=== PATIENT | female | born 1945 | race Caucasian/White ===

== ENCOUNTER 2020-03-18 09:23 | Outpatient (REF) | payer MEDICARE, SELFPAY | END 2020-03-18 09:24 | disposition home or self-care (01) | LOC: HO.LAB 09:23 | PROVIDERS: Visit Provider Internal Medicine | DX: Z20.828 Contact with and (suspected) exposure to other viral communicable diseases (principal) | CPT/HCPCS: C9803; U0003 ==

== ENCOUNTER 2020-03-25 10:18 | Outpatient (REF) | payer MEDICARE, SELFPAY | END 2020-03-25 10:19 | disposition home or self-care (01) | LOC: HO.LAB 10:18 | PROVIDERS: Visit Provider Internal Medicine | DX: Z20.828 Contact with and (suspected) exposure to other viral communicable diseases (principal) | CPT/HCPCS: C9803; U0003 ==

== ENCOUNTER 2021-09-12 12:25 | Outpatient (REF) | payer MEDICARE, SELFPAY ==
--- NOTE | ~2021-09-12 | CT_ITS ---
EXAMINATION: CT HEAD WITHOUT CONTRAST CLINICAL INFORMATION: 76-year-old with headache. COMPARISON: None TECHNIQUE: Contiguous axial imaging was performed from the skull base to vertex without intravenous administration of contrast. This CT examination was performed using dose optimization techniques as appropriate, variously including the following: *Automated exposure control *Adjustment of mA and/or kV according to patient size (this includes techniques or standardized protocols for targeted exams where dose is matched to indication/reason for exam; i.e. extremities or head) *Use of iterative reconstruction technique DLP: 714 mGy-cm FINDINGS: Brain Volume: Moderate generalized diffuse brain parenchymal volume loss noted within the limitations of a qualitative assessment. Structural: Partially empty sella, normal variant. Brain and Meninges: Scattered patchy zones of white matter hypodensity in the subcortical and deeper periventricular white matter of both cerebral hemispheres are noted which are nonspecific but likely reflect chronic ischemic microangiopathy in a patient of this age. Small foci of hypodensity are seen in the deep capsular regions bilaterally likely reflecting chronic ischemic changes and there is a tiny remote lacunar infarct in the posterior right putamen. No acute territorial infarct. No evidence for hemorrhage, extra-axial fluid collection, space-occupying process or mass effect. Bilateral ICA and vertebral artery calcifications. Ventricles and Subarachnoid Spaces: Ventricular system and subarachnoid spaces are consistent with moderate volume loss. No hydrocephalus. Orbital Structures: Bilateral lens extractions noted. Otherwise grossly unremarkable. Osseous Structures, Sinuses/Mastoids, Extracranial Soft Tissues: Osseous structures are intact. Partially imaged retention cyst right maxillary sinus and nasal septal deviation to the left. CT/CT head/brain wo con IMPRESSION: 1. Findings consistent with chronic ischemic microangiopathy in the white matter of both cerebral hemispheres with a small remote lacunar infarct in the right putamen and chronic ischemic microangiopathy in the deep capsular structures bilaterally. 2. No acute intracranial process. No acute infarct, hemorrhage, extra-axial fluid collection, space-occupying process, mass effect or hydrocephalus. 3. Moderate generalized diffuse brain parenchymal volume loss. Bilateral atheromatous calcifications of the ICAs and vertebral arteries.
== END 2021-09-12 12:26 | disposition home or self-care (01) ==
LOC: HO.CT 12:25
PROVIDERS: Visit Provider Internal Medicine Geriatric Medicine
DX: R51.9 Headache, unspecified (principal)
CPT/HCPCS: 70450

== ENCOUNTER 2022-12-14 13:38 | Outpatient (REF) | payer MEDICARE, SELFPAY ==
[2022-12-14 16:26] LABS: Anion Gap 13 (12-20); Blood Urea Nitrogen 25 mg/dL (9-16); Calcium 10.3 mg/dL (8.4-10.2); Carbon Dioxide 21 mmol/L (22-29); Chloride 112 mmol/L (96-108); Estimated Glomerular Filt Rate 43; Glucose Random 239 mg/dL (60-115); Sodium 141 mmol/L (135-145)
== END 2022-12-14 13:39 | disposition home or self-care (01) ==
LOC: HO.HHCL 13:38
PROVIDERS: Visit Provider Internal Medicine Geriatric Medicine
DX: E11.69 Type 2 diabetes mellitus with other specified complication (principal); Z79.4 Long term (current) use of insulin
CPT/HCPCS: 36415; 80048

== ENCOUNTER 2023-01-18 15:51 | Outpatient (REF) | payer MEDICARE, SELFPAY | END 2023-01-18 15:52 | disposition home or self-care (01) | LOC: HO.HHCX 15:51 | PROVIDERS: Visit Provider Internal Medicine Geriatric Medicine | DX: M54.41 Lumbago with sciatica, right side (principal); G89.29 Other chronic pain | CPT/HCPCS: 72100 ==

== ENCOUNTER 2023-02-04 13:22 | Outpatient (AMB) | payer MEDICARE, SELFPAY ==
--- NOTE | 2023-02-04 13:37 | A.OFFVIS_ITS ---
Intake Vital Signs 02/04/23 13:41 Height 5 ft 0.3 in Weight 184 lb 6 oz BMI 35.6 BP 114/60 Blood Pressure Location Lt brachial Position Sitting Respiration 14 Pulse 77 Pulse Source Pulse Oximeter Pulse Oximetry (%) 96 Oxygen Delivery Method Room Air Intake Visit Reasons: Chronic low back pain/CONFIRMED Loom Changer Required: Yes Loom Changer Name: Beverly Allergies BRITTANI Inhibitors Allergy (Verified 02/04/23 13:38) Cough HPI HPI Comments History of Present Illness Details Cecy is a very pleasant 77 year old Icelandic Speaking female who presents to the office, accompanied by her grandson, for evaluation and management of her chronic lower back pain. Patient reports pain right lower and left lower back, worse with movement, sitting, standing and position changes. Pain radiates into thighs bilaterally, she does endorse occassional pain into her feet. She has known diabetic neuropathy, she does not recall EMG testing to her feet. She denies shocking, shooting or electrical type pain down either leg. She does state right side of her back is worse than the left. PCP recently ordered xray and PT. Xray reviewed, results as per below. She had home PT eval and is awaiting to start scheduled visits. Pain today is rated as an 8/10, it becomes worse in the evening in the middle the night where she also reports some cramping in her thighs bilaterally. Patient most recent A1C 8.5 11/2022. PCP ordered recheck but results are not available. Per her grandson patient has been taking her medications as prescribed and working on her diet. States her A1c has been coming down and they are trying very hard to get it under control. In terms of muscle damage condition is described as stabbing, aching, hot, burning, tingling, pins and needles. Pain is negatively impacting patient's enjoyment of life, general activity, mood, normal work, recreational activities and walking. Review of Systems Const All systems reviewed & are unremarkable except as noted in HPI and below Physical Exam Vital Signs: Last Vital Signs Pulse 77 02/04/23 13:41 Resp 14 02/04/23 13:41 BP 114/60 02/04/23 13:41 Pulse Ox 96 02/04/23 13:41 Oxygen Delivery Method Room Air 02/04/23 13:41 BMI result Body Mass Index 35.6 General: awake, alert, oriented. Answers questions appropriately. Fully engaged in examination. Skin: warm, dry, intact HEENT: Normocephalic. Hearing intact. Cardiac: External chest normal in appearance. Respiratory: No cough, audible wheezing or stridor. Abdomen: without gross distension. MS: No obvious swelling or deformities. Neurological: Oriented to person, place, time and situation. Thought process intact. Ambulates with use of a cane. Psychiatric: Appropriate mood and affect. Good judgment and insight. Back/Spine/Pelvis Other: Lumbar exam: Able to transition from sit to stand with assistance Tender to palpation over paraspinal muscles and PSIS ROM: limited secondary to pain with extension to 5 degrees. flexion to 50 degrees Strength: 5/5 BLE Sensation: intact and symmetric BLE DTR: intact and symmetric Straight leg raises with and without dorsiflexion positive bilaterally Facet loading positive bilaterally WILFREDO positive bilaterally SI compression positive bilaterally Thigh thrust positive bilaterally Results Reviewed Results Reviewed: 01/18/23 XR/XR lumbar spine 2-3V FINDINGS: There is bony demineralization. Vertebral body heights are normal. At L4-L5, there is a 5 mm retrolisthesis. At L5-S1, there is mild disc space narrowing and a 6 mm anterolisthesis. No acute fracture or spondylolisthesis is seen. The posterior elements are intact. There is facet arthropathy at L4-L5 and L5-S1. There are diffuse aortoiliac atherosclerotic calcifications. IMPRESSION: At L4-L5 and L5-S1, there is moderate degenerative disc disease an facet arthropathy. Assessment & Plan Assessment & Plan (1) Lumbar spondylosis: Code(s): M47.816 - Spondylosis without myelopathy or radiculopathy, lumbar region (2) Lumbar facet arthropathy: Code(s): M47.816 - Spondylosis without myelopathy or radiculopathy, lumbar region (3) Diabetes 1.5, managed as type 1: Code(s): E13.9 - Other specified diabetes mellitus without complications (4) Chronic pain: Code(s): G89.29 - Other chronic pain (5) Diabetic polyneuropathy: Code(s): E11.42 - Type 2 diabetes mellitus with diabetic polyneuropathy Plan Cecy is a very pleasant 77-year-old female who presented to the office today with her grandson for evaluation management of her chronic lower back pain. History, physical exam and provocative testing consistent with bilateral sacroiliac joint dysfunction, lumbar spondylosis and lumbar radiculopathy. Continue with physical therapy as ordered A1c recheck ordered by PCP at last visit, patient instructed to have this compl eted and send results to our office. EMG ordered for evaluation of bilateral peripheral neuropathy, most likely secondary to uncontrolled diabetes however patient does endorse lumbar radiculopathy with provocative testing. Baclofen 5 mg p.o. daily at bedtime. Patient and Grandson educated on use and precautions. Lidocaine 5% topical patches apply to most painful area. On for 12 hours off for 12 hours. Discussed options for treatment including diagnostic interventional testing, epidural steroid injections, peripheral nerve stimulation with Sprint, RFA and more permanent neuromodulation. Advised patient and her grandson that A1c would need to be below 8 before we could offer her any therapeutic injections, peripheral nerve stimulator or neuromodulation. All questions and concerns have been answered. Patient will follow-up in the office after completion of 4-6 weeks physical therapy. Orders: Orders NE electromyogram (EMG) Today G62.9 - Polyneuropathy, unspecified Medications: New baclofen 5 mg PO BEDTIME 30 tabs 0RF lidocaine 5% leave on most painful area for up to 12 hrs 1 patch topical DAILY 30 ea 0RF Coding Level of Care Code New Pt Level 4 (79606) Diagnoses Lumbar spondylosis M47.816 Lumbar facet arthropathy M47.816 Diabetes 1.5, managed as type 1 E13.9 Chronic pain G89.29 Diabetic polyneuropathy E11.42
[2023-02-04 13:41] VITALS: BP 114/60; PULSE 77; RESP 14; O2SAT 96; BMI 35.6
== END 2023-02-04 14:12 | disposition home or self-care (01) ==
PROVIDERS: PCP Internal Medicine Geriatric Medicine; Visit Provider Registered Nurse Emergency
DX: M47.816 Spondylosis without myelopathy or radiculopathy, lumbar region (principal); G89.29 Other chronic pain; E11.42 Type 2 diabetes mellitus with diabetic polyneuropathy
CPT/HCPCS: 99204

== ENCOUNTER → 2023-02-04 13:22 | Outpatient (BNVA) | payer MEDICARE, SELFPAY | PROVIDERS: PCP Internal Medicine Geriatric Medicine; Visit Provider Registered Nurse Emergency ==

== ENCOUNTER 2023-06-15 11:11 | Outpatient (REF) | payer MEDICARE, SELFPAY ==
[2023-06-15 13:15] LABS: MANUAL DIFF FLAG NO
[2023-06-15 13:35] LABS: Basophils Absolute Auto 0.1 X10*3/uL (0.0-0.2); Basophils Percent Auto 0.6 % (0-2); Eosinophils Absolute Auto 0.2 X10*3/uL (0.0-0.4); Eosinophils Percent Auto 2.7 % (0-4); Imm Gran Abs Auto 0.03 X10*3/uL (0.00-0.03); Imm Gran Pct Auto 0.4 % (0.0-0.4); Lymphocytes Absolute Auto 2.5 X10*3/uL (1.2-4.9); Mean Corpuscular HGB Conc 30.6 g/dl (31.0-35.0); Mean Corpuscular Hemoglobin 26.9 pg (27.0-33.0); Mean Platelet Volume 10.4 fL (9.4-12.3); Monocytes Absolute Auto 0.6 X10*3/uL (0.1-1.2); Neutrophils Absolute Auto 4.6 x10*3/uL (2.0-8.3); Neutrophils Percent Auto 58.3 % (45-73); Platelet Count 284 X10*3/uL (160-400); Red Blood Count 4.09 X10*6/uL (4.20-5.50); Red Cell Distribution Width 14.9 % (11.0-16.0); White Blood Count 7.9 X10*3/uL (4.8-10.8)
[2023-06-15 13:36] LABS: Alanine Aminotransferase 16 U/L (0-31); Alkaline Phosphatase 65 U/L (39-117); Anion Gap 10 (12-20); Aspartate Amino Transferase 16 U/L (5-31); Bilirubin Total 0.2 mg/dL (0.0-1.0); Blood Urea Nitrogen 22 mg/dL (9-16); Calcium 10.1 mg/dL (8.4-10.2); Carbon Dioxide 25 mmol/L (22-29); Chloride 111 mmol/L (96-108); Cholesterol 148 mg/dL (<200); Estimated Glomerular Filt Rate 59; Glucose Random 248 mg/dL (60-115); HDL Cholesterol 48 mg/dL (>40); LDL Cholesterol Calculated 54 mg/dL (<100); Potassium 4.9 mmol/L (3.3-5.1); Sodium 141 mmol/L (135-145); Total Protein 7.1 g/dL (6.5-8.0); Triglycerides 231 mg/dL (<150)
[2023-06-15 14:27] LABS: Creatinine Urine 147.88 mg/dL; Microalbum/Creatinine Ratio Ur 179.1 ug/mg cr (<30)
== END 2023-06-15 11:12 | disposition home or self-care (01) ==
LOC: HO.HHCL 11:11
PROVIDERS: Visit Provider Internal Medicine Geriatric Medicine
DX: E11.69 Type 2 diabetes mellitus with other specified complication (principal); I49.9 Cardiac arrhythmia, unspecified; I73.9 Peripheral vascular disease, unspecified; Z79.4 Long term (current) use of insulin
CPT/HCPCS: 36415; 80053; 80061; 82043; 82570; 85025

== ENCOUNTER 2023-12-03 11:45 | Outpatient (REF) | payer MEDICARE, SELFPAY ==
[2023-12-03 13:26] LABS: MANUAL DIFF FLAG NO
[2023-12-03 13:40] LABS: Basophils Percent Auto 0.6 % (0-2); Eosinophils Absolute Auto 0.2 X10*3/uL (0.0-0.4); Hematocrit 33.4 % (37.0-47.0); Hemoglobin 10.6 g/dl (12.0-16.0); Imm Gran Abs Auto 0.02 X10*3/uL (0.00-0.03); Imm Gran Pct Auto 0.3 % (0.0-0.4); Lymphocytes Absolute Auto 1.9 X10*3/uL (1.2-4.9); Lymphocytes Percent Auto 27.5 % (20-40); Mean Corpuscular HGB Conc 31.7 g/dl (31.0-35.0); Mean Corpuscular Hemoglobin 26.8 pg (27.0-33.0); Mean Corpuscular Volume 84.3 fL (80.0-98.0); Mean Platelet Volume 10.7 fL (9.4-12.3); Monocytes Absolute Auto 0.5 X10*3/uL (0.1-1.2); Monocytes Percent Auto 6.7 % (2-11); Neutrophils Absolute Auto 4.3 x10*3/uL (2.0-8.3); Neutrophils Percent Auto 61.9 % (45-73); Platelet Count 261 X10*3/uL (160-400); Red Blood Count 3.96 X10*6/uL (4.20-5.50); Red Cell Distribution Width 14.9 % (11.0-16.0)
[2023-12-03 13:55] LABS: Partial Thromboplastin Time 32.3 SEC (26.0-36.8)
[2023-12-03 13:59] LABS: Anion Gap 14 (12-20); Blood Urea Nitrogen 28 mg/dL (9-16); Calcium 9.6 mg/dL (8.4-10.2); Carbon Dioxide 25 mmol/L (22-29); Chloride 109 mmol/L (96-108); Cholesterol 141 mg/dL (<200); Estimated Glomerular Filt Rate 49; Glucose Random 197 mg/dL (60-115); HDL Cholesterol 42 mg/dL (>40); LDL Cholesterol Calculated 65 mg/dL (<100); Potassium 4.4 mmol/L (3.3-5.1); Sodium 144 mmol/L (135-145); Triglycerides 174 mg/dL (<150)
[2023-12-03 14:02] LABS: B Type Natriuretic Peptide 59 pg/mL (<100)
== END 2023-12-03 11:46 | disposition home or self-care (01) ==
LOC: HO.HHCL 11:45
PROVIDERS: Visit Provider Internal Medicine Cardiovascular Disease
DX: Z13.89 Encounter for screening for other disorder (principal)
CPT/HCPCS: 36415; 80048; 80061; 83880; 85025; 85730

== ENCOUNTER 2023-12-24 15:04 | Outpatient (REF) | payer MEDICARE, SELFPAY ==
--- NOTE | ~2023-12-24 | XR_ITS ---
EXAMINATION: XR ANKLE, RIGHT CLINICAL INFORMATION: 78 y.o F acute ankle pain, swelling, after tripping COMPARISON: None available. TECHNIQUE: AP, lateral, and mortise views of the right ankle. FINDINGS: Soft tissue swelling at the right ankle. No fracture or malalignment. Ankle joint effusion. Minimal osteoarthritis in the Chopart joint. No focal osteolysis is identified. Small enthesopathic spurs are present at the Achilles tendon insertion and plantar fascial origin on the calcaneus. Atherosclerotic calcification. XR/XR ankle RT min 3V IMPRESSION: Soft tissue swelling at the right ankle with an ankle joint effusion. No acute fracture or malalignment. Electronically signed by: John Suggs MD 12/30/2023 05:07 PM EDT
== END 2023-12-24 15:05 | disposition home or self-care (01) ==
LOC: HO.HHCX 15:04
PROVIDERS: Visit Provider Registered Nurse
DX: S99.911A Unspecified injury of right ankle, initial encounter (principal)
CPT/HCPCS: 73610

== ENCOUNTER 2024-07-18 10:49 | Outpatient (REF) | payer MEDICARE, SELFPAY ==
[2024-07-18 11:22] LABS: MANUAL DIFF FLAG NO
[2024-07-18 11:34] LABS: Basophils Percent Auto 0.4 % (0-2); Eosinophils Absolute Auto 0.3 X10*3/uL (0.0-0.4); Eosinophils Percent Auto 3.3 % (0-4); Hematocrit 35.7 % (37.0-47.0); Hemoglobin 10.9 g/dl (12.0-16.0); Imm Gran Abs Auto 0.02 X10*3/uL (0.00-0.03); Imm Gran Pct Auto 0.3 % (0.0-0.4); Lymphocytes Absolute Auto 2.1 X10*3/uL (1.2-4.9); Lymphocytes Percent Auto 27.2 % (20-40); Mean Corpuscular HGB Conc 30.5 g/dl (31.0-35.0); Mean Corpuscular Hemoglobin 26.2 pg (27.0-33.0); Mean Corpuscular Volume 85.8 fL (80.0-98.0); Mean Platelet Volume 10.5 fL (9.4-12.3); Monocytes Absolute Auto 0.5 X10*3/uL (0.1-1.2); Monocytes Percent Auto 7.1 % (2-11); Neutrophils Absolute Auto 4.7 x10*3/uL (2.0-8.3); Neutrophils Percent Auto 61.7 % (45-73); Platelet Count 248 X10*3/uL (160-400); Red Blood Count 4.16 X10*6/uL (4.20-5.50); Red Cell Distribution Width 15.4 % (11.0-16.0); White Blood Count 7.6 X10*3/uL (4.8-10.8)
[2024-07-18 12:16] LABS: Alanine Aminotransferase 14 U/L (0-31); Alkaline Phosphatase 62 U/L (39-117); Anion Gap 12 (12-20); Aspartate Amino Transferase 17 U/L (5-31); Bilirubin Total 0.3 mg/dL (0.0-1.0); Blood Urea Nitrogen 18 mg/dL (9-16); Carbon Dioxide 27 mmol/L (22-29); Chloride 110 mmol/L (96-108); Cholesterol 145 mg/dL (<200); Estimated Glomerular Filt Rate > 60; Glucose Random 176 mg/dL (60-115); HDL Cholesterol 49 mg/dL (>40); LDL Cholesterol Calculated 59 mg/dL (<100); Potassium 4.6 mmol/L (3.3-5.1); Sodium 144 mmol/L (135-145); Total Protein 6.8 g/dL (6.5-8.0); Triglycerides 188 mg/dL (<150)
[2024-07-18 12:27] LABS: Vitamin B12 263 pg/mL (200-900)
--- OUTSIDE RECORDS SUMMARY | 2024-07-18 12:58 | XMS_ITS | Encounter Summary ---
Author Organization [facility] Address [address] [place] [address] Care Team Providers Care Tablet Coater Name Role Phone Name, Everett PERALTA Primary Care Provider [phone] Aidan Curiel MD Unavailable Encounter Details Date Type Department Care Team (Late st Contact Info) Description 05/04/2018 Scanned Document [facility] [place] [address] [address] Aidan Curiel MD [address] [address] Social History Tobacco Use Types Packs/Day Years Used Date Smoking Tobacco: Never Assessed Sex and Gender Information Value Date Recorded Sex Assigned at Not on file Gender Identity Not on file Sexual Orientation Not on file documented as of this encounter Plan of Treatment Not on file documented as of this encounter Visit Diagnoses Not on filedocumented in this encounter Care Teams Tablet Coater Relationship Specialty Start Date End Date Name, MD Everett [address] [place] [id number] PCP - General Internal Medicine 02/04/18 Aidan Curiel MD [address] [place] [id number] Cardiovascular Disease 02/04/18 documented as of this encounter
--- OUTSIDE RECORDS SUMMARY | 2024-07-18 12:58 | XMS_ITS | Encounter Summary ---
Author Organization [facility] Address [address] [place] [address] [address] [place] [address] Care Team Providers Care Channel Marketing Program Manager Name Role Phone Name, Everett PERALTA Primary Care Provider [phone] Mary Ochoa PharmD Unavailable Reason for Visit * Reason Comments Med Refill Encounter Details Date Type Department Care Team (Late st Contact Info) Description 11/09/2022 Refill [facility] MEDICINE [address] [place] [address] PuiaDipeshMary, PharmD [address] [place] [address] Type 2 diabetes mellitus with other specified complication, with long-term current use of insulin ([facility]) Social History Tobacco Use Types Packs/Day Years Used Date Smoking Tobacco: Never Assessed Comments Unknown Sex and Gender Information Value Date Recorded Sex Assigned at Female 02/16/2022 10:15 AM EDT Legal Sex Female 10:15 AM EDT Gender Identity Female 02/16/2022 10:15 AM EDT Sexual Orientation Straight 02/16/2022 10 :15 AM EDT documented as of this encounter Plan of Treatment Upcoming Encounters Date Type Department Care Team (Late st Contact Info) Description 09/05/2024 11:30 AM EDT Medication Management [facility] MEDICINE [address] [place] [address] Puia, Mary, PharmD [address] [place] [address] documented as of this encounter Goals Goal Patient Goal Type Associated Problems Recent Progress Patient-Stated? Author Hemoglobin A1c < 8 Result Component 8(07/06/2024 11:26 AM EDT) No Mary Ochoa PharmD Record your blood sugar as directed Result Component No Mary Ochoa PharmD Note: Use CGM, ensuring sensor is scanned at least once every 8 hours to capture 24H data. Check BG manually, as directed. documented as of this encounter Visit Diagnoses Diagnosis Type 2 diabetes mellitus with other specified complication, with long-term current use of insulin ([facility]) documented in this encounter Care Teams Channel Marketing Program Manager Relationship Specialty Start Date End Date Name, MD Everett [address] [place] [address] PCP - General Family Medicine 05/28/15 Mary Ochoa PharmD [address] [place] [address] Pharmacist Internal Medicine 12/09/21 documented as of this encounter
--- OUTSIDE RECORDS SUMMARY | 2024-07-18 12:58 | XMS_ITS | Encounter Summary ---
Author Organization [facility] Address [address] [place] [address] [address] [place] [address] Care Team Providers Care Flash Drier Operator Name Role Phone Name, Everett PERALTA Primary Care Provider Mary Ochoa PharmD Unavailable Encounter Details Date Type Department Care Team (Late Contact Info) Description 09/29/2022 Abstract [facility] MEDICINE [address] [place] [phone] Name, MD Everett [address] [place] [id number] Social History Tobacco Use Types Packs/Day Years Used Date Smoking Tobacco: Never Assessed Comments Unknown Sex and Gender Information Value Date Recorded Sex Assigned at Female 02/16/2022 10:15 AM EDT Legal Sex Female 10:15 AM EDT Gender Identity Female 02/16/2022 10:15 AM EDT Sexual Orientation Straight 02/16/2022 10 :15 AM EDT COVID-19 Exposure Response Date Recorded In the last 10 days, have yo u been in contact with someone who was confirmed or suspected to have Coronavirus/COVID-19? No / Unsure 09/28/2022 1:50 PM EDT documented as of this encounter Plan of Treatment Upcoming Encounters Date Type Department Care Team (Late st Contact Info) Description 09/05/2024 11:30 AM EDT Medication Management [facility] MEDICINE [address] [place] [phone] KimiaHildasa, PharmD [address] [place] [address] documented as of this encounter Goals Goal Patient Goal Type Associated Problems Recent Progress Patient-Stated? Author Hemoglobin A1c < 8 Result Component 8(07/06/2024 11:26 AM EDT) No Mary Ochoa, Manuel documented as of this encounter Procedures Procedure Name Priority Date/Time Associated Diagnosis Comments COLONOSCOPY Routine 05/01/2014 1:21 PM EST documented in this encounter Results * Colonoscopy (05/01/2014 1:21 PM EST) Colonoscopy Normal Normal Narrative Coty Torres - 05/01/2014 1:21 PM EST Recommended 5 year follow up us Historical Provider HEALTH MAINTENANCE Final Result documented in this encounter Visit Diagnoses Not on filedocumented in this encounter Care Teams Flash Drier Operator Relationship Specialty Start Date End Date Name, MD Everett [address] [place] [address] PCP - General Family Medicine 05/28/15 Mary Ochoa, PharmD [address] [place] [address] Pharmacist Internal Medicine 12/09/21 documented as of this encounter
--- OUTSIDE RECORDS SUMMARY | 2024-07-18 12:58 | XMS_ITS | Clinical Summary ---
Author Organization [employer] Address [address] [place] [address] [address] [place] [address] Care Team Providers Care Equipment Maint Tech Name Role Phone Name, Everett PERALTA Primary Care Provider [phone] PuMary marcial PharmD Unavailable [phone] Allergies Active Allergy Reactions Criticality Noted Date Comments Rubén Inhibitors Cough Medications albuterol 108 (90 Base) MCG/ACT inhaler Inhale 2 puffs every 4 (four) hours if needed. 020 Active cilostazol (Pletal) 50 MG tablet TAKE 1 TABLET BY MOUTH TWICE DAILY IN THE MORNING AND IN THE EVENING (30 MINUTES BEFORE OR 2 HOURS AFTER FOOD) 022 Active clopidogrel (Plavix) 75 MG tablet Take 75 mg by mouth in the morning. 023 Active amLODIPine (Norvasc) 10 MG tablet TAKE 1 TABLET BY MOUTH AT BEDTIME 90 tablet 3 024 Active losartan (Cozaar) 100 MG tablet Take 100 mg by mouth in the morning. 024 Active Acetaminophen Extra Strength 500 MG tablet TAKE 1 TABLET BY MOUTH EVERY 8 HOURS NEEDED FOR MILD PAIN 90 tablet 024 Active insulin pen needle (UltiGOriginalrd SafePack Pen Needle) 32G x 4 mm miscIndication s:Type 2 diabetes mellitus with other specified complication, with long-term current use of insulin ([facility]) Use 1 daily to inject insulin 100 each 3 024 Active tiotropium (Spiriva HandiHaler) 18 MCG inhalation capsule USE 1 CAPSULE FOR INHALATION ONCE A DAY. DO NOT SWALLOW CAPSULE. 30 capsule 5 024 Active fluticasone furoate (Arnuity Ellipta) 50 MCG/ACT inhaler INHALE 1 PUFF BY MOUTH IN THE MORNING RINSE MOUTH AFTER USING. 30 each 5 024 Active insulin glargine (Toujeo SoloStar) 300 UNIT/ML injectionIndic ations:Type 2 diabetes mellitus with other specified complication, with long-term current use of insulin (CMS/HCC) Inject 50 units subQ once daily at bedtime. If hypoBG recurs decrease further to 46 units & call office. 9 mL 5 024 Active cyanocobalamin (Vitamin B-12) 1000 MCG/ML injection INJECT 1 ML INTRAMUSCULARLY ONCE PER MONTH 1 mL 024 Active D3 Super Strength 50 MCG (1999 UT) capsuleIndicat ions:Vitamin D deficiency TAKE 1 CAPSULE BY MOUTH TWICE DAILY IN THE MORNING AND IN THE EVENING 180 capsule 1 024 Active albuterol (2.5 MG/3ML) 0.083% nebulizer solutionIndica tions:Asthma with status asthmaticus, unspecified asthma severity, unspecified whether persistent INHALE 1 AMPULE USING A NEBULIZER EVERY 4 HOURS 90 mL 024 Active Continuous Glucose Movie Shot Cameraman (FreeStyle Fabrice 3 [place]) deviceIndicati ons:Type 2 diabetes mellitus with other specified complication, with long-term current use of insulin (CMS/HCC) 1 each 3 times daily. Use daily as directed for CGM 1 each 025 Active Continuous Glucose Sensor (FreeStyle Fabrice 3 Plus Sensor) miscIndication s:Type 2 diabetes mellitus with other specified complication, with long-term current use of insulin (CMS/HCC) 1 each Once per day. Apply 1 sensor every 15 days, as directed, for CGM. 2 each 025 Active Lancets (OneTouch Delica Plus [id number]) miscIndication s:Type 2 diabetes mellitus with other specified complication, with long-term current use of insulin (CMS/HCC) Use to test blood sugar up to three times daily as directed 100 each 025 Active glucose blood (FreeStyle Precision Arian Test) test stripIndicatio ns:Type 2 diabetes mellitus with other specified complication, with long-term current use of insulin (CMS/HCC) Use to test blood sugar up to 3 times daily, as directed 100 each Active Aspirin Low Dose 81 MG EC tabletIndicati ons:Peripheral vascular disease (CMS/HCC) TAKE 1 TABLET BY MOUTH AT BEDTIME 30 tablet Active buPROPion SR (Wellbutrin SR) 150 MG 12 hr tabletIndicati ons:Depression , unspecified depression type TAKE 1 TABLET BY MOUTH TWICE DAILY IN THE MORNING AND IN THE EVENING 180 tablet Active metFORMIN XR (Glucophage-XR ) 500 MG 24 hr tabletIndicati ons:Type 2 diabetes mellitus with other specified complication, with long-term current use of insulin (CMS/HCC) TAKE 1 TABLET BY MOUTH TWICE DAILY IN THE MORNING AND IN THE EVENING WITH MEALS 60 tablet Active rosuvastatin (Crestor) 20 MG tablet TAKE 1 TABLET BY MOUTH AT BEDTIME 90 tablet 025 Active omeprazole (PriLOSEC) [address] capsule TAKE 1 CAPSULE BY MOUTH EVERY MORNING BEFORE BREAKFAST 90 capsule 025 Active metoprolol succinate XL (Toprol-XL) 200 MG 24 hr tablet TAKE 1 TABLET BY MOUTH AT BEDTIME 90 tablet 025 Active pregabalin (Lyrica) 150 MG capsule TAKE 1 CAPSULE BY MOUTH THREE TIMES DAILY IN THE MORNING, EVENING, AND BEDTIME 90 capsule 025 Active omeprazole (PriLOSEC) [address] capsule TAKE 1 CAPSULE BY MOUTH EVERY MORNING BEFORE BREAKFAST 90 capsule 024 2024 Discontinued metoprolol succinate XL (Toprol-XL) 200 MG 24 hr tablet TAKE 1 TABLET BY MOUTH AT BEDTIME 90 tablet 3 024 2024 Discontinued rosuvastatin (Crestor) 20 MG tablet TAKE 1 TABLET BY MOUTH AT BEDTIME 90 tablet 3 024 2024 Discontinued Tirzepatide (Mounjaro) 12.5 MG/0.5ML solution auto-injector Inject 12.5 mg under the skin 1 (one) time per week. 2024 Discontinued(D ose adjustment) pregabalin (Lyrica) 150 MG capsule TAKE 1 CAPSULE BY MOUTH THREE TIMES DAILY IN THE MORNING, EVENING, AND BEDTIME 90 capsule 025 2024 Discontinued Hospital, Clinic, or Other Facility Administered Medication Ordered Dose Route Frequency Start Date End Date Status cyanocobalamin (Vitamin B-12) injection 1,000 mcgIndications:Cobalamin deficiency 1000 mcg IM Every 30 days 06/30/2022 Active cyanocobalamin (Vitamin B-12) injection 1,000 mcgIndications:Cobalamin deficiency 1000 mcg IM Every 30 days 07/14/2022 Active cyanocobalamin (Vitamin B-12) injection 1,000 mcgIndications:Cobalamin deficiency 1000 mcg IM Every 30 days 09/08/2023 Active cyanocobalamin (Vitamin B-12) injection 1,000 mcgIndications:Cobalamin deficiency 1000 mcg IM Every 30 days 07/07/2024 Active Active Problems Problem Noted Date Diagnosed Date Diabetes 07/27/2022 Overview (12/16/2022): Last Assessment & Plan: A1c should be less than 7 and LDL less than 70 mg/dL by the guidelines. Cerebral microvasculopathy 04/05/2022 Cobalamin deficiency 04/05/2022 Type 2 diabetes mellitus, wi th long-term current use of insulin 03/25/2022 Bilateral hearing loss 04/01/2017 Peripheral vascular disease 07/06/2016 Overview (05/13/2023): As mentioned she is status post right SFA intervention doing well she has an ultrasound coming up I will see her in 6 months or sooner if necessary Last Assessment & Plan: As mentioned we are going to intervene on the right superficial femoral artery she has a new lesion above the stent that I placed in the past. Chronic obstructive lung disease 05/26/2016 Diabetic polyneuropathy 05/26/2016 Eczema, dyshidrotic 03/02/2016 Shoulder pain 03/02/2016 Microalbuminuric diabetic nephropathy 10/15/2015 Tinea pedis 10/15/2015 Claudication 09/20/2015 Obesity with body mass index 30 or greater 03/21 Cervical arthritis 07/12/2013 Anxiety 11/25/2012 Allergic rhinitis 08/31/2011 Benign essential hypertension 08/31/2011 Overview (12/16/2022): Last Assessment & Plan: Well-controlled at this time Pure hypercholesterolemia 08/31/2011 Resolved Problems Problem Noted Date Diagnosed Date Resolved Date Frequent headaches 07/14/2021 4 Encounters Date Type Department Care Team Description 07/11/2024 Refill [facility] [address] [place] [address] Everett Woodson MD 07/09/2024 Refill [facility] [address] [place] [address] Everett Woodson MD 07/06/2024 11:15 AM EDT Office Visit [facility] [address] [place] [address] Everett Woodson MD Type 2 diabetes mellitus with other specified complication, with long-term current use of insulin ([facility]) (Primary Dx); Peripheral vascular disease ([facility]); Cobalamin deficiency 07/06/2024 Travel 06/15/2024 Refill [facility] [address] [place] [address] Everett Woodson MD 06/08/2024 Refill [facility] [address] [place] [address] Mary Ochoa PharmD Type 2 diabetes mellitus with other specified complication, with long-term current use of insulin (CMS/HCC) 05/25/2024 Telephone [facility] [address] [place] [address] Everett Woodson MD Call back requested 05/24/2024 Telephone [facility] [address] [place] [address] Vilma Davidson, RN 05/16/2024 Refill [facility] [address] [place] [address] Everett Woodson MD 05/14/2024 Refill [facility] [address] [place], [place] [phone] Everett Woodson MD Depression, unspecified depression type 05/12/2024 Telephone [facility] [address] [place] [address] Emily Easton, OD 05/11/2024 2:00 PM EST Office Visit [facility] [address] [place], [place] [phone] Emily Easton, OD Type 2 diabetes mellitus without ophthalmic manifestations ([facility]) (Primary Dx); Cyst of left lower eyelid; Dry eyes; Pseudophakia 05/11/2024 Travel 05/10/2024 Refill [facility] [address] [place] [address] Everett Woodson MD Peripheral vascular disease ([facility]) 04/27/2024 Telephone [facility] [address] [place] [address] [place]ments[place] feb recalls 04/24/2024 Telephone [facility] [address] [place] [address] Melissa Woodward, YULIYA 04/21/2024 Refill [facility] [address] [place] [address] Everett Woodson MD from Last 3 Months Immunizations Name Administration Dates Next Due Hep B, adult 10/28/2022,09/25/2022 Influenza High-dose Quadriva lent Preservative Free 01/18/2023,02/03/2021,03/18/2020 Influenza injectable quadriv alent IIV4 with preservative 02/16/2017,03/02/2016,01/02/2015 Influenza injectable quadriv alent preservative free 01/05/2022,04/21/2018 Influenza, High Dose Seasona l, Preservative Free 12/30/2023,05/02/2019 Influenza, IIV3, injectable 01/26/2014 Influenza, Split (incl. мария fied surface antigen) 12/27/2012,12/14/2011 Pfizer Covid-19 Vaccine 12+ 02/22/2024,0 05/08/2021,10/05/2020,09/05 Pfizer Covid-19 Vaccine 12+ Bivalent 09/25/2022 Pfizer Covid-19 Vaccine 12+ ismael-sucrose (Lopez Cap) 05/08/2021 Pneumococcal Conjugate PCV 13 01/02/2015 Pneumococcal Conjugate PCV 20 01/21/2023 Pneumococcal Polysaccharide PPSV23 10/15/2015 RSV Bivalent 12/30/2023 TD (adult), 2 Lf tetanus tox oid, preservative free, adsorbed 07/01/2017 Tdap 10/15/2015 Zoster, Recombinant 05/21/2020,03/18/2020 Zoster, live 01/26/2014 Social History Tobacco Use Types Packs/Day Years Used Date Smoking Tobacco: Never Passive Smoke Exposure: Never Tobacco Cessation:Counseling Given: Not Answered Alcohol Use Standard Drinks/Week Comments Never 0 (1 standard drink = 0.6 oz pur e alcohol) Depression Answer Date Recorded Patient Health Questionnaire-9 Score 0 09/07/2023 Patient Health Questionnaire-9 Score 0 09/07/2023 Last PHQ-9: Questionnaire Data Not on file 0 09/07/2023 Housing Stability Answer Date Recorded What is your housing situation today? I have sheldon shepherd 07/06/[address] you li ve. Do you have problems with any of the following? None of the above 07/06/2024 Food Insecurity Answer Date Recorded Within the past 12 months, y ou worried that your food would run out before you got money to buy more: Never True 07/06/2024 Within the past 12 months,th e food you bought just didn't last and you didn't have enough money to get more: Never True Transportation Answer Date Recorded In the past 12 months, has l ack of transportation kept you from medical appts, meetings, work or from getting things needed for daily living? No 07/06/2024 Utilities Answer Date Recorded In the past 12 months, has t he electric, gas, oil or water company threatened to shut off services in your home? No 07/06/2024 Depression Answer Date Recorded Patient Health Questionnaire-2 Score 0 09/07/2023 Internet Access Answer Date Recorded Internet Access Q1 Yes 07/06/2024 Internet Access Q2 Not on file 07/06/2024 Comments Unknown Sex and Gender Information Value Date Recorded Sex Assigned at Female 02/16/2022 10:15 AM EDT Legal Sex Female 10:15 AM EDT Gender Identity Female 02/16/2022 10:15 AM EDT Sexual Orientation Straight 02/16/2022 10 :15 AM EDT Last Filed Vital Signs Vital Sign Reading Time Taken Comments Blood Pressure 108/61 07/06/2024 11:18 AM EDT Pulse 77 07/06/2024 11:18 AM EDT Temperature 36.8 ??C (98.3 ??F) 07/06/2024 11:18 AM E DT Respiratory Rate 16 07/06/2024 11:18 AM EDT Oxygen Saturation 95% 07/06/2024 11:18 AM EDT Inhaled Oxygen Concentration - - Weight 83.9 kg (185 lb) 07/06/2024 11:18 AM EDT Height 157.5 cm (5' 2 ) 07/06/2024 11:18 AM EDT Body Mass Index 33.84 07/06/2024 11:18 AM EDT Plan of Treatment Upcoming Encounters Date Type Department Care Team (Late st Contact Info) Description 09/05/2024 11:30 AM EDT Medication Management [facility] [address] [place], [place] [phone] Mary Ochoa, PharmD [address] [place], [place] [phone] Health Maintenance Due Date Last Done Comments Alcohol/Substance Use Screening 1957 Hepatitis C Screening 09/09/1963 Hepatitis B Vaccines (3 of 3 - 19+ 3-dose series) 03/27/2023 10/28/2022, 09/25/2022 Depression Screening 09/06/2024 09/07/2023, 09/07/19 24 Diabetes: Foot Exam 09/06/2024 09/07/2023, 09/07/2023, 09/07/2023, Additional history exists Diabetes: Hemoglobin A1C 10/06/2024 025, 02/22/2024, 12/30/2023, Additional history exists SDOH Screening 07/06/2025 07/06/2024 Tobacco Screening 07/06/2025 07/06/2024 Lipid Panel 07/18/2025 07/18/2024, 05/21, 09/11/2022, Additional history exists Eye Exam 05/11/2026 05/11/2024, 04/20, 05/11/2024, Additional history exists DTaP/Tdap/Td Vaccines (3 - Td or Tdap) 07/02/2027 07/01/2017, 10/15/2015 Colonoscopy Discontinued 05/01/2014 Colorectal Cancer Screening Discontinued Zoster Vaccines Completed 05/21/2020, 02/19, 01/26/2014 Pneumococcal Vaccine: 50+ Years Completed 01/21/2023, 10/15/2015, 01/02/2015 Influenza Vaccine Completed 12/30/2023, , 01/05/2022, Additional history exists RSV Patients and Patients Aged 60 years or older Completed 12/30/2023 COVID-19 Vaccine Completed 02/22/2024, 12/2022, 05/08/2021, Additional history exists CT Colonography Discontinued FIT DNA/Cologuard Discontinued FIT Discontinued FOBT Discontinued HIB Vaccines Aged Out No longer eligi ble based on patient's age to complete this topic HPV Vaccines Aged Out No longer eligi ble based on patient's age to complete this topic Hepatitis A Vaccines Aged Out No long er eligible based on patient's age to complete this topic IPV Vaccines Aged Out No longer eligi ble based on patient's age to complete this topic Meningococcal Vaccine Aged Out No amarjit elissa eligible based on patient's age to complete this topic RSV under 20 months Aged Out No longe r eligible based on patient's age to complete this topic Rotavirus Vaccines Aged Out No longer eligible based on patient's age to complete this topic Sigmoidoscopy Discontinued Goals Goal Patient Goal Type Associated Problems Recent Progress Patient-Stated? Author Hemoglobin A1c < 8 Result Component 8(07/06/2024 11:26 AM EDT) No Mary Ochoa, PharmD Record your blood sugar as directed Result Component No Mary Ochoa, PharmD Note: Use CGM, ensuring sensor is scanned at least once every 8 hours to capture 24H data. Check BG manually, as directed. Procedures Procedure Name Priority Date/Time Associated Diagnosis Comments VITAMIN B12 Routine 07/18/2024 10:51 AM EDT Cobalamin deficiency LIPID PANEL, STANDARD Routine 07/18/2024 10:51 AM EDT Type 2 diabetes mellitus with other specified complication, with long-term current use of insulin (CMS/HCC) Peripheral vascular disease (CMS/HCC) COMPREHENSIVE METABOLIC PANEL Routine 07/18/2024 10:51 AM EDT Type 2 diabetes mellitus with other specified complication, with long-term current use of insulin (CMS/HCC) Peripheral vascular disease (CMS/HCC) CBC WITH AUTO DIFFERENTIAL Routine 07/18/2024 10:51 AM EDT Type 2 diabetes mellitus with other specified complication, with long-term current use of insulin (CMS/HCC) Peripheral vascular disease (CMS/HCC) POCT GLYCATED HEMOGLOBIN, TOTAL Routine 07/06/2024 11:26 AM EDT Type 2 diabetes mellitus with other specified complication, with long-term current use of insulin (CMS/HCC) POCT GLUCOSE Routine 07/06/2024 11:25 AM EDT Type 2 diabetes mellitus with other specified complication, with long-term current use of insulin (CMS/HCC) HM COLONOSCOPY Routine 05/01/2014 1:21 PM EST from Last 3 Months or Most Recently Relevant to Health Maintenance Results * (ABNORMAL) CBC auto differential (07/18/2024 10:51 AM EDT) White Blood Count 7.6 4.8 - 10.8 X10*3/uL [facility] Red Blood Count 4.16(L) 4.20 - 5.50 X10*6/uL [facility] Hemoglobin 10.9(L) 12.0 - 16.0 g/dl [facility] Hematocrit 35.7(L) 37.0 - 47.0 % [facility] Mean Corpuscular Volume 85.8 80.0 - 98.0 fL [facility] Mean Corpuscular Hemoglobin 26.2(L) 27.0 - 33.0 pg [facility] Mean Corpuscular HGB Conc 30.5(L) 31.0 - 35.0 g/dl [facility] Red Cell Distribution Width 15.4 11.0 - 16.0 % [facility] Platelet Count 248 160 - 400 X10*3/uL [facility] Mean Platelet Volume 10.5 9.4 - 12.3 fL [facility] Neutrophils Percent Auto 61.7 45 - 73 % [facility] Imm Gran Pct Auto 0.3 0.0 - 0.4 % [facility] Lymphocytes Percent Auto 27.2 20 - 40 % [facility] Monocytes Percent Auto 7.1 2 - 11 % [facility] Eosinophils Percent Auto 3.3 0 - 4 % [facility] Basophils Percent Auto 0.4 0 - 2 % [facility] NRBC Pct Auto 0.0 0.0 - 0.2 /100WBC [facility] Neutrophils Absolute Auto 4.7 2.0 - 8.3 x10*3/uL [facility] Imm Gran Abs Auto 0.02 0.00 - 0.03 X10*3/uL [facility] Lymphocytes Absolute Auto 2.1 1.2 - 4.9 X10*3/uL [facility] Monocytes Absolute Auto 0.5 0.1 - 1.2 X10*3/uL [facility] Eosinophils Absolute Auto 0.3 0.0 - 0.4 X10*3/uL [facility] Basophils Absolute Auto 0.0 0.0 - 0.2 X10*3/uL [facility] NRBC Abs Auto 0.000 0.0 - 0.012 X10*3/uL [facility] Blood Venous blood specimen / Unknown 07/18/2024 10:51 AM EDT 07/18/2024 11:17 AM EDT us Everett Name MD LAB BLOOD ORDERABLES Final Resul t [facility] [address] [place] [phone] [phone] * Vitamin B12 (07/18/2024 10:51 AM EDT) Vitamin B12 263 200 - 900 pg/mL [facility] Comment:NORMAL 200-900 PG/ML INDETERMINATE 160-199 PG/ML DEFICIENT < 160 PG/ML Blood Venous blood specimen / Unknown 07/18/2024 10:51 AM EDT 07/18/2024 11:17 AM EDT us Everett Woodson MD LAB BLOOD ORDERABLES Final Resul t Performing Organization Address [facility] de Phone Number [facility] [address] [place] [phone] * (ABNORMAL) Lipid Panel, Standard (07/18/2024 10:51 AM EDT) Triglycerides 188(H) <150 mg/dL [facility] Comment:Desirable Triglyceri de: less than 150 mg/dLBorderline High Triglyceride 150-199 mg/dLHigh Triglyceride: 200-499 mg/dLVery High Triglyceride: greater than or equal to 5OO mg/dL Cholesterol 145 <200 mg/dL [facility] Comment:Desirable Cholestero l: less than 200 mg/dLBorderline High Cholesterol: 200-239 mg/dLHigh Cholesterol: greater than 239 mg/dL LDL Cholesterol Calculated 59 <100 mg/dL [facility] Comment:Desirable LDL: less than 100 mg/dLNear Optimal/Above Optimal LDL: 110- 129 mg/dLBorderline High LDL: 130-159 mg/dLHigh LDL: 160-189 mg/dLVery High LDL: greater than or equal to 190 mg/dL HDL Cholesterol 49 >40 mg/dL [facility] Comment:Desirable HDL: great er than 40 mg/dL Note: This HDL assay may give artificially low results in patients with liver disease. Blood Venous blood specimen / Unknown 07/18/2024 10:51 AM EDT 07/18/2024 11:17 AM EDT us Everett Woodson MD LAB BLOOD ORDERABLES Final Resul t Performing Organization Address [facility] Co de Phone Number [facility] [address] [place] [phone] * (ABNORMAL) Comprehensive Metabolic Panel (07/18/2024 10:51 AM EDT) Sodium 144 135 - 145 mmol/L [facility] Potassium 4.6 3.3 - 5.1 mmol/L [facility] Chloride 110(H) 96 - 108 mmol/L [facility] Carbon Dioxide 27 22 - 29 mmol/L [facility] Anion Gap 12 12 - 20 [facility] Urea Nitrogen (BUN) 18(H) 9 - 16 mg/dL [facility] Creatinine, Serum 0.90 0.5 - 1.4 mg/dL [facility] Estimated Glomerular Filt Rate >60 [facility] Comment:Chronic Kidney Disea se: Estimated GFR < 60 mL/min/[id number] Kidney Disease: Estimated GFR < 15 mL/min/1.73m2 Glucose 176(H) 60 - 115 mg/dL [facility] Calcium 10.0 8.4 - 10.2 mg/dL [facility] Bilirubin, Total 0.3 0.0 - 1.0 mg/dL [facility] Aspartate Amino Transferase 17 5 - 31 U/L [facility] Alanine Aminotransferase 14 0 - 31 U/L [facility] Total Protein 6.8 6.5 - 8.0 g/dL [facility] Albumin Level 4.0 3.5 - 5.0 g/dL [facility] Alkaline Phosphatase 62 39 - 117 U/L [facility] Blood Venous blood specimen / Unknown 07/18/2024 10:51 AM EDT 07/18/2024 11:17 AM EDT us Everett Name LAB BLOOD ORDERABLES Final Resul t [facility] [address] [place] [phone] * (ABNORMAL) POCT HGB A1C (07/06/2024 11:26 AM EDT) Hemoglobin A1C 8.0(A) 4.0 - 6.0 % QC Media Lot # [id number] Lot# Expiration Date [id number] Blood 07/06/2024 11:2 6 AM EDT Everett Name POINT OF CARE TEST ENTER/EDIT OR DERABLES Final Result * POCT Glucose (07/06/2024 11:25 AM EDT) Glucose Blood, POC 188 60 - 200 mg/dL QC Media Lot # [id number] Lot# Expiration Date [id number] Blood Capillary blood specimen / Unknown 07/06/2024 11:25 AM EDT Everett Name POINT OF CARE TEST ENTER/EDIT OR DERABLES Final Result * Hm Colonoscopy (05/01/2014 1:21 PM EST) Colonoscopy Normal Normal Narrative Coty Torres - 05/01/2014 1:21 PM EST Recommended 5 year follow up Historical Provider HEALTH MAINTENANCE Final Result from Last 3 Months or Most Recently Relevant to Health Maintenance Insurance DUAL COMPLETE Care Teams Equipment Maint Tech Relationship Specialty Start Date End Date Name, MD Everett [address] [place] [address] PCP - General Family Medicine 05/28/15 Mary Ochoa PharmD [address] [place] [phone] Pharmacist Internal Medicine 12/09/21
--- OUTSIDE RECORDS SUMMARY | 2024-07-18 12:58 | XMS_ITS ---
Author Name Presley Abraham APRN Address [address] [place] [address] Phone [phone] [facility] Care Team Providers Care Hazard Waste Handler Name Role Phone Lexie Abraham Unavailable [phone] Reason for Referral Not Available Allergies, adverse reactions, alerts Allergen Type Reaction Severity Status Onset Date BRITTANI Inhibitors Allergy to substance (disorder) Cough Unk nown Active N/A History of medication use Medication Class Instructions Start Date End Date Aspirin Low Dose 81 mg Tab delayed rel TAKE 1 TABLET BY MOUTH AT BEDTIME 2021-07-09 No Data Available Cilostazol 50 mg Tab TAKE 1 TABLET BY MO UT TWICE DAILY IN THE MORNING AND IN THE EVENING (30 MINUTES BEFORE OR 2 HOURS AFTER FOOD) 2021-08-13 No Data Available Clopidogrel Bisulfate 75 mg Tab TAKE 1 TABLET BY MOUTH EVERY MORNING 2021-08-19 No Data Available Arnuity Ellipta 50 MCG/ACT Aerosol Powder Breath Activated INHALE 1 PUFF BY MOUTH EVERY DAY AT THE SAME TIME RINSE MOUTH AFTER USING 2021-09-29 No Data Available Losartan Potassium 50 mg Tab TAKE 1 TABL ET BY MOUTH EVERY EVENING 2021-02-27 No Data Available metFORMIN ER 500 mg Tab ER 24hr TAKE 1 TABLET BY MOUTH EVERY MORNING and TAKE 2 TABLETS EVERY DAY IN THE EVENING WITH MEALS 2021-07-11 No Data Available OneTouch Delica Plus [id number] Miscellaneous TEST BLOOD SUGAR FOUR TIMES DAILY 2021-05-07 No Data Available OneTouch Ultra Strip TEST BLOOD SUGAR FO UR TIMES DAILY 2021-02-24 No Data Available Pregabalin 100 mg Cap TAKE 1 CAPSULE BY MOUTH THREE TIMES DAILY IN THE MORNING, EVENING, AND BEDTIME 2021-09-29 No Data Available Spiriva HandiHaler 18 MCG Cap USE 1 CAPSULE FOR INHALATION ONCE A DAY DO NOT SWALLOW CAPSULE 2021-01-24 No Data Available Sure Comfort Pen Needle 31 gauge x 3/16 USE DIRECTED TO INJECT INSULIN 2021-02-24 No Data Available Trulicity 4.5 mg/0.5ML Solution Pen-injector INJECT ONE PEN (= 4.5 MG) SUBCUTANEOUSLY ONCE A WEEK DIRECTED 2021-10-07 No Data Available Heath SoloStar 300 UNIT/ML Solution Pen-injector INJECT 50 UNITS SUBCUTANEOUSLY DAILY DIRECTED 2021-07-18 No Data Available Omeprazole 20 mg Cap delayed rel TAKE 1 CAPSULE BY MOUTH EVERY MORNING BEFORE MEALS 2021-09-08 No Data Available Rosuvastatin Calcium 20 mg Tab TAKE 1 TABLET BY MOUTH AT BEDTIME 2021-09-08 No Data Available Vitamin D3 50 mcg (2,000 unit) capsule TAKE 1 CAPSULE BY MOUTH TWICE DAILY IN THE MORNING AND IN THE EVENING 2021-11-28 No Data Available Metoprolol Succinate ER 200 mg Tab ER 24hr TAKE 1 TABLET BY MOUTH AT BEDTIME 2021-09-08 No Data Available amLODIPine Besylate 10 mg Tab TAKE 1 TABLET BY MOUTH AT BEDTIME 2021-10-07 No Data Available buPROPion ER (SR) 150 mg Tab ER 12hr TAKE 1 TABLET BY MOUTH TWICE DAILY IN THE MORNING AND IN THE EVENING 2021-12-26 No Data Available Triple Antibiotic 3.5-400-5000 Oint APPLY TOPICALLY TO AFFECTED AREA(S) ONCE DAILY 2021-02-03 No Data Available Cyanocobalamin 1000 MCG/ML Solution INJECT 1 ML ONCE PER MONTH 2022-01-05 No Data Avail able UltiCare Pen Needle 32 gauge x 5/32 USE DAILY WITH INSULIN 2022-03-05 No Data Available Medbox Status USE DIRECTED 2022-03-24 No Data Ofelia ilable Aspirin 81 mg Tab delayed rel take 1 tablet orally once daily 2023-04-27 No Data Available FreeStyle Fabrice 2 Sensor Miscellaneous USE DIRECTED. CHANGE EVERY 14 DAYS 2022-09-03 No Data Available Mounjaro 10 mg/0.5ML Solution Pen-injector INJECT 10 MG SUBCUTANEOUSLY ONCE A WEEK 2022-09-15 No Data Available Acetaminophen Extra Strength 500 mg Tab TAKE 1 TABLET BY MOUTH EVERY 8 HOURS NEEDED FOR MILD PAIN 2023-09-07 No Data Available Pentips 32 gauge x 5/32 needle USE DIRECTED EVERY DAY 2023-02-22 No Data Availa ble Pentips Pen Needle 32 gauge x 5/32 USE ONCE DAILY TO INJECT INSULIN 2023-12-30 No Data Available Problem List Problem Status Onset Date Resolved Date Chronic obstructive lung disease Active N/A Major depressive disorder, recurrent, mild Active 2022-05-19 N/A Congestive heart failure Active 2022-05-19 N/A 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 2023-04-27 Mental Status Status Date AOx 2022-05-19 Assessments Not Available Plan of Care Not Available
--- OUTSIDE RECORDS SUMMARY | 2024-07-18 12:58 | XMS_ITS | Encounter Summary ---
Author Organization [facility] Address [address] [place] [address] 7 [place] [address] Care Team Providers Care Life Teacher Name Role Phone Name, Everett PERALTA Primary Care Provider [phone] Mary Ochoa PharmD Unavailable Encounter Details Date Type Department Care Team (Late st Contact Info) Description 04/02/2022 Orders Only [facility] [address] [place] [address] Preethi Muse LPN Social History Tobacco Use Types Packs/Day Years [...] Description 09/05/2024 11:30 AM EDT Medication Management [facility] MEDICINE [address] [place] [address] Mary Ochoa, PharmD [address] [place] [address] documented as of this encounter Visit Diagnoses Not on filedocumented in this encounter Care Teams Life Teacher Relationship Specialty Start Date End Date Name, MD Everett [address] [place] [address] PCP - General Family Medicine 05/28/15 Mary Ochoa, PharmD [address] [place] [phone] Pharmacist Internal Medicine 12/09/21 documented as of this encounter
--- OUTSIDE RECORDS SUMMARY | 2024-07-18 12:58 | XMS_ITS | Encounter Summary ---
Author Organization [employer] Address [address] [place] [address] [address] [place] [address] Care Team Providers Care Acute Care Nurse Practitioner Name Role Phone Name, Everett PERALTA Primary Care Provider [phone] Mary Ochoa PharmD Unavailable [phone] Reason for Visit * Reason Onset Date Comments verbal order 01/28/2023 Encounter Details Date Type Department Care Team ([facility] st Contact Info) Description 01/28/2023 Telephone [facility] MEDICINE [address] [place], [place] [phone] Name, MD Everett [address] [place] [address] verbal order Social History Tobacco Use Types Packs/Day Years Used Date Smoking Tobacco: Never Alcohol Use Standard Drinks/Week Comments Never 0 (1 standard drink = 0.6 oz pur e alcohol) Depression Answer Date Recorded Patient Health Questionnaire-9 Score 11 01/18/2023 Housing Stability Answer Date Recorded What is your housing situation today? I have sheldon shepherd 01/25/[address] you li ve. Do you have problems with any of the following? None of the above 01/25/2023 Food Insecurity Answer Date Recorded Within the past 12 months, y ou worried that your food would run out before you got money to buy more: Never True 01/25/2023 Within the past 12 months,th e food you bought just didn't last and you didn't have enough money to get more: Never True 12/2022 Transportation Answer Date Recorded In the past 12 months, has l ack of transportation kept you from medical appts, meetings, work or from getting things needed for daily living? No 01/25/2023 Utilities Answer Date Recorded In the past 12 months, has t he electric, gas, oil or water company threatened to shut off services in your home? No 01/25/2023 Depression Answer Date Recorded Patient Health Questionnaire-2 Score 2 01/18/2023 Comments Unknown Sex and Gender Information Value Date Recorded Sex Assigned at Female 02/16/2022 10:15 AM EDT Legal Sex Female 10:15 AM EDT Gender Identity Female 02/16/2022 10:15 AM EDT Sexual Orientation Straight 02/16/2022 10 :15 AM EDT documented as of this encounter Miscellaneous Notes * Telephone Encounter - Deyanira Herrera - 02/01/2023 2:42 PM EDT DME CREATED * Telephone Encounter - Deyanira Herrera - 02/01/2023 1:28 PM EDT PLEASE READ BELOW AND ADVICE. * Telephone Encounter - Swetha Toney RN - 01/29/2023 2:51 PM EDT T/C to [facility]ae for below message, Nae also asking for PCP to order rx for Four wheel walker with seat and break and Bed rail assist. Please review and advise if needed. * Telephone Encounter - Ella May - 01/28/2023 3:57 PM EDT Tc from Nae from [employer] requesting a verbal order to start PT and OT services at home . Best contact # [phone]. documented in this encounter Plan of Treatment Upcoming Encounters Date Type Department Care Team (Late st Contact Info) Description 09/05/2024 11:30 AM EDT Medication Management [address] [address] Mary Ochoa PharmD [address] [place] [address] documented as of this encounter Goals Goal [...] Diagnoses Not on filedocumented in this encounter Additional Health Concerns Assessment Noted Time PHQ-9 Depression Total Score: 11 023 2:45 PM EDT documented as of this encounter Care Teams Acute Care Nurse Practitioner Relationship Specialty Start Date End Date Name, MD Everett [address] [place] [address] PCP - General Family Medicine 05/28/15 Mary Ochoa, PharmD [address] [place] [address] Pharmacist Internal Medicine 12/09/21 documented as of this encounter
--- OUTSIDE RECORDS SUMMARY | 2024-07-18 12:58 | XMS_ITS | Clinical Summary ---
Author Organization [facility] Address [address] [place] [address] Care Team Providers Care Battery Mechanic Name Role Phone Name, Everett PERALTA Primary Care Provider [phone] Aidan Curiel MD Unavailable Active Problems Problem Noted Date Diagnosed Date PVD (peripheral vascular disease) with claudicat ion 03/31/2018 Overview (03/31/2018): Added automatically from request for surgery [id number] Peripheral vascular disease 02/04/2018 Overview (02/04/2018): Added automatically from request for surgery [id number] Social History Tobacco Use Types Packs/Day Years Used Date Smoking Tobacco: Never Assessed Sex and Gender Information Value Date Recorded Sex Assigned at Not on file Gender Identity Not on file Sexual Orientation Not on file Plan of Treatment Health Maintenance Due Date Last Done Comments Hepatitis C Virus Screening 1945 DTaP/Tdap/Td Vaccines (1 - Tdap) 09/09/1966 Pneumococcal Vaccines 50+ (1 of 1 - PCV) 09/09/1997 Zoster (Shingles) Vaccine (1 of 2) 09/09/1997 DXA Bone Density (Females,Ag es 65 and older) 09/09/2012 RSV Vaccine 60 years and old er and Patients (1 - 1-dose 75+ series) 09/09/2022 Influenza Vaccine 11/18/2023 COVID-19 Vaccine (2023-2 5 season) 2023 Hepatitis B Vaccines Aged Out No long er eligible based on patient's age to complete this topic Care Teams Battery Mechanic Relationship Specialty Start Date End Date Name, MD Everett [address] [place] [id number] PCP - General Internal Medicine 02/04/18 Aidan Curiel MD [address] [place] [address] Cardiovascular Disease 02/04/18
== END 2024-07-18 10:50 | disposition home or self-care (01) ==
LOC: HO.HHCL 10:49
PROVIDERS: Visit Provider Internal Medicine Geriatric Medicine
DX: E11.69 Type 2 diabetes mellitus with other specified complication (principal); Z79.4 Long term (current) use of insulin; I73.9 Peripheral vascular disease, unspecified; E53.8 Deficiency of other specified B group vitamins
CPT/HCPCS: 36415; 80053; 80061; 82607; 85025

== ENCOUNTER 2025-01-23 11:01 | Outpatient (REF) | payer MEDICARE, SELFPAY ==
[2025-01-23 13:35] LABS: MANUAL DIFF FLAG NO
--- OUTSIDE RECORDS SUMMARY | 2025-01-23 13:40 | XMS_ITS | Encounter Summary ---
Author Organization [facility] Address [address] [place] [address] Care Team Providers Care Communications Tech Name Role Phone Name, Everett PERALTA Primary Care Provider [phone] Aidan Curiel MD Unavailable Encounter Details Date Type Department Care Team (Late st Contact Info) Description 05/04/2018 Scanned Document [facility] [place] [address] [address] Aidan Curiel MD [address] [address] Social History Tobacco Use Types Packs/Day Years Used Date Smoking Tobacco: Never Assessed Comments Unknown Sex and Gender Information Value Date Recorded Sex Assigned at Not on file Legal Sex Female 10:36 AM EDT Gender Identity Not on file Sexual Orientation Not on file documented as of this encounter Plan of Treatment Not on file documented as of this encounter Visit Diagnoses Not on filedocumented in this encounter Care Teams Communications Tech Relationship Specialty Start Date End Date Name, MD Everett [address] [place] [id number] PCP - General Internal Medicine 02/04/18 Aidan Curiel MD [address] [place] [address] Cardiovascular Disease 02/04/18 documented as of this encounter
--- OUTSIDE RECORDS SUMMARY | 2025-01-23 13:40 | XMS_ITS | Encounter Summary ---
Author Organization [employer] Address [address] [place] [address] 7 [place] [address] Care Team Providers Care Communications Field Technician Name Role Phone Name, Everett PERALTA Primary Care Provider [phone] Mary Ochoa PharmD Unavailable [phone] Reason for Visit * Reason Onset Date Comments verbal order 01/28/2023 Encounter Details Date Type Department Care Team ([facility] st Contact Info) Description 01/28/2023 Telephone [facility] MEDICINE [address] [place], [place] [phone] Name, MD Everett [address] [place] [address] verbal order Social History Tobacco Use Types [...] 3:57 PM EDT Tc from Nae from [email or web address] requesting a verbal order to start PT and OT services at home . Best contact # [phone]. documented in this encounter Plan of Treatment Upcoming Encounters Date Type Department Care Team ([facility] st Contact Info) Description 02/06/2025 3:30 PM EDT Office Visit [facility] MED[facility]INE [address] [place] [phone] Name, MD Everett [address] [place] [phone] 03/01/2025 1:00 PM EST Medication Management [facility] [address] [place] [address] Mary Ochoa PharmD [address] [place] [address] documented as of this encounter Goals Goal Patient Goal Type Associated Problems Recent Progress Patient-Stated? Author Hemoglobin A1c < 8 Result Component 7.7( 1:45 PM EDT) No Mary Ochoa PharmD Record your [...] documented as of this encounter Care Teams Communications Field Technician Relationship Specialty Start Date End Date Name, MD Everett [address] [place] [address] [phone] PCP - General Family Medicine 05/28/15 Mary Ochoa PharmD [address] [place] [address] [phone] Pharmacist Internal Medicine 12/09/21 documented as of this encounter
--- OUTSIDE RECORDS SUMMARY | 2025-01-23 13:40 | XMS_ITS | Clinical Summary ---
Author Organization [facility] Address [address] [place] [address] Care Team Providers Care Manager Bank Name Role Phone Name, Everett PERALTA Primary Care Provider [phone] Aidan Curiel MD Unavailable Active Problems Problem Noted Date Diagnosed Date PVD (peripheral vascular disease) with claudicat ion 03/31/2018 Overview (03/31/2018): Added automatically from request for surgery [id number] Peripheral vascular disease 02/04/2018 Overview (02/04/2018): Added automatically from request for surgery [id number] Social History Tobacco Use Types Packs/Day Years Used Date Smoking Tobacco: Never Assessed Comments Unknown Sex and Gender Information Value Date Recorded Sex Assigned at Not on file Legal Sex Female 10:36 AM EDT Gender Identity Not on file Sexual Orientation Not on file Plan of Treatment Health Maintenance Due Date Last Done Comments Advance Care Planning 1945 Hepatitis C Virus Screening 1945 DTaP/Tdap/Td Vaccines (1 - Tdap) 09/09/1966 Pneumococcal Vaccines 50+ (1 of 1 - PCV) 09/09/1997 Zoster (Shingles) Vaccine (1 of 2) 09/09/1997 DXA Bone Density (Females,Ag es 65 and older) 09/09/2012 RSV Vaccine 60 years and old er and Patients (1 - 1-dose 75+ series) 09/09/2022 Influenza Vaccine 11/17/2024 COVID-19 Vaccine ( - 2023-2 5 season) 2024 Hepatitis B Vaccines Aged Out No long er eligible based on patient's age to complete this topic Insurance [facility] Care Teams Manager Bank Relationship Specialty Start Date End Date Name, MD Everett [address] [place] [address] PCP - General Internal Medicine 02/04/18 Aidan Curiel MD [address] [place] [address] Cardiovascular Disease 02/04/18
--- OUTSIDE RECORDS SUMMARY | 2025-01-23 13:40 | XMS_ITS | Clinical Summary ---
Author Organization [employer] Address [address] [place] [address] 7t [place] [address] Care Team Providers Care Energy Efficiency Finance Manager Name Role Phone Name, Everett PERALTA Primary Care Provider [phone] Mary Ochoa PharmD Unavailable [phone] Allergies Active Allergy Reactions Criticality Noted Date Comments Rubén Inhibitors Cough Medications cilostazol (Pletal) 50 MG tablet TAKE 1 TABLET BY MOUTH TWICE DAILY IN THE MORNING AND IN THE EVENING (30 MINUTES BEFORE OR 2 HOURS AFTER FOOD) 02/26/20 22 Active clopidogrel (Plavix) 75 MG tablet Take 75 mg by mouth in the morning. 07/28/19 23 Active losartan (Cozaar) 100 MG tablet Take 100 mg by mouth in the morning. 07/29/19 24 Active albuterol (2.5 MG/3ML) 0.083% nebulizer solutionIndica tions:Asthma with status asthmaticus, unspecified asthma severity, unspecified whether persistent INHALE 1 AMPULE USING A NEBULIZER EVERY 4 HOURS 90 mL 10 04/14/20 24 Active Lancets (OneTouch Delica Plus [id number]) miscIndication s:Type 2 diabetes mellitus with other specified complication, with long-term current use of insulin (HCC) Use to test blood sugar up to three times daily as directed 100 each 04/20/19 25 Active glucose blood (FreeStyle Precision Arian Test) test stripIndicatio ns:Type 2 diabetes mellitus with other specified complication, with long-term current use of insulin (HCC) Use to test blood sugar up to 3 times daily, as directed 100 each 04/20/19 25 Active Aspirin Low Dose 81 MG EC tabletIndicati ons:Peripheral vascular disease (CMS/HCC) TAKE 1 TABLET BY MOUTH AT BEDTIME 30 tablet 05/10/19 25 Active rosuvastatin (Crestor) 20 MG tablet TAKE 1 TABLET BY MOUTH AT BEDTIME 90 tablet 07/11/19 25 Active omeprazole (PriLOSEC) [address] capsule TAKE 1 CAPSULE BY MOUTH EVERY MORNING BEFORE BREAKFAST 90 capsule 07/11/19 25 Active metoprolol succinate XL (Toprol-XL) 200 MG 24 hr tablet TAKE 1 TABLET BY MOUTH AT BEDTIME 90 tablet 07/11/19 25 Active Continuous Glucose Sensor (FreeStyle Fabrice 2 Plus Sensor) miscIndication s:Type 2 diabetes mellitus with other specified complication, with long-term current use of insulin ([facility]) 1 each every 8 (eight) hours. Apply 1 sensor every *15 days* as directed for CGM. Scan at least every 8 hours to capture 24 hour BG data. 2 each 07/19/19 25 Active Tirzepatide (Mounjaro) 15 MG/0.5ML solution auto-injectorI ndications:Typ e 2 diabetes mellitus with other specified complication, with long-term current use of insulin ([facility]) Inject 15 mg under the skin 1 (one) time per week. 2 mL 07/19/19 25 Active insulin glargine (Toujeo SoloStar) 300 UNIT/ML injectionIndic ations:Type 2 diabetes mellitus with other specified complication, with long-term current use of insulin ([facility]) Inject 40 units subQ once daily at bedtime. 9 mL 07/19/19 25 Active fluticasone furoate (Arnuity Ellipta) 50 MCG/ACT inhaler INHALE 1 PUFF BY MOUTH EVERY DAY AT THE SAME TIME RINSE MOUTH AFTER USING 30 each 08/04/19 25 Active tiotropium (Spiriva HandiHaler) 18 MCG inhalation capsule USE 1 CAPSULE FOR INHALATION ONCE A DAY DO NOT SWALLOW CAPSULE 30 capsule 08/04/19 25 Active amLODIPine (Norvasc) 10 MG tablet TAKE 1 TABLET BY MOUTH AT BEDTIME 90 tablet 08/09/19 25 Active Continuous Glucose Grades 1 Through 6 Teacher (FreeStyle Fabrice 2 Doran) device Use to scan sensor at least every 8 hours, as directed, for CGM 1 each 09/06/19 25 Active D3 Super Strength 50 MCG (2000 UT) capsuleIndicat ions:Vitamin D deficiency TAKE 1 CAPSULE BY MOUTH TWICE DAILY IN THE MORNING AND IN THE EVENING 180 capsule 1 10/04/19 25 Active cyanocobalamin (Vitamin B-12) 1000 MCG tablet Take 1,000 mcg by mouth Once per day. 09/15/19 25 Active albuterol 108 (90 Base) MCG/ACT inhaler Inhale 2 puffs every 4 (four) hours if needed for wheezing or shortness of breath. 18 g 11 10/13/19 25 Active buPROPion SR (Wellbutrin SR) 150 MG 12 hr tabletIndicati ons:Depression , unspecified depression type TAKE 1 TABLET BY MOUTH TWICE DAILY IN THE MORNING AND IN THE EVENING 180 tablet 1 11/03/19 25 Active Finerenone (Kerendia) 20 MG tabletIndicati ons:Type 2 diabetes mellitus with other specified complication, with long-term current use of insulin (HCC),Microalb uminuric diabetic nephropathy (HCC) Take 1 tablet by mouth Once per day. 30 tablet 1 11/29/19 25 Active metFORMIN XR (Glucophage-XR ) 500 MG 24 hr tabletIndicati ons:Type 2 diabetes mellitus with other specified complication, with long-term current use of insulin (HCC) Take 1 tablet (500 mg) by mouth with breakfast and with evening meal. Do not crush, chew, or split. 180 tablet 3 11/29/19 25 Active insulin pen needle (UltiGuard SafePack Pen Needle) 32G x 4 mm miscIndication s:Type 2 diabetes mellitus with other specified complication, with long-term current use of insulin (HCC) Use 1 daily to inject insulin 100 each 3 11/29/19 25 Active pregabalin (Lyrica) 150 MG capsule Take 1 capsule (150 mg) by mouth 3 times daily. 90 capsule 01/10/20 25 Active pregabalin (Lyrica) 150 MG capsule TAKE 1 CAPSULE BY MOUTH THREE TIMES DAILY IN THE MORNING, EVENING, AND BEDTIME 90 capsule 12/07/19 25 025 Discontinued(Re order (will not trigger notification to Pharmacy)) Active Problems Problem Noted Date Diagnosed Date [...] Encounters Date Type Department Care Team Description 01/12/2025 Telephone [facility] [address] [place] [address] Mary Ochoa, PharmD 01/08/2025 Refill [facility] [address] [facility] [place] [phone] Name, MD Everett 12/06/2024 Refill [facility] [address] [facility] [place] [address] Name, MD Everett 11/28/2024 Telephone [facility] [address] [place], [place] [phone] Mary Ochoa, PharmD 11/28/2024 Travel 11/07/2024 Refill [facility] [address] [place] [address] Name, MD Everett 11/01/2024 Refill [facility] [address] [place], [place] [phone] Name, MD Everett Depression, unspecified depression type 10/30/2024 Telephone [facility] ADULT DENT[facility] [address] [place] [address] Reno Yeboah, DMD 10/30/2024 Telephone [facility] [address] [place] [address] Geoffrey Toth DDS appt internal referral from Last 3 Months Immunizations Immunization Administration Dates Next Due Hep B, adult [...] 77 07/06/2024 11:18 AM EDT Temperature 36.8 C (98.3 F) 07/06/2024 11:18 AM EDT Respiratory Rate 16 07/06/2024 11:18 AM EDT Oxygen Saturation 95% 07/06/2024 11:18 AM EDT Inhaled Oxygen Concentration - - Weight 83.9 kg (185 lb) 07/06/2024 11:18 AM EDT Height 157.5 cm (5' 2 ) 07/06/2024 11:18 AM EDT Body Mass Index 33.84 07/06/2024 11:18 AM EDT Plan of Treatment Upcoming Encounters Date Type Department Care Team (Late st Contact Info) Description 02/06/2025 3:30 PM EDT Office Visit [facility] [address] [place] [phone] Name, MD Everett [address] [place] [address] 03/01/2025 1:00 PM EST Medication Management [address] [phone] Mary Ochoa, PharmD [address] [place], [place] [phone] Health Maintenance Due Date Last Done Comments Alcohol/Substance Use Screening 1957 Hepatitis C Screening 09/09/1963 Hepatitis B Vaccines (3 of 3 - 19+ 3-dose series) 03/27/2023 10/28/2022, 09/25/2022 Depression Screening 09/06/2024 09/07/2023, 09/07/19 Diabetes: Foot Exam 09/06/2024 09/07/2023, 09/07/2023, 09/07/2023, Additional history exists COVID-19 Vaccine ( season) 2024 02/22/2024, 09/25/2022, 05/08/2021, Additional history exists Influenza Vaccine (#1) 2024 , 01/18/2023, 01/05/2022, Additional history exists Diabetes: Hemoglobin A1C 02/28/2025 08 025, 07/06/2024, 02/22/2024, Additional history exists SDOH Screening 07/06/2025 07/06/2024 Tobacco Screening 07/06/2025 07/06/2024 Lipid Panel 07/18/2025 07/18/2024, 05/21, 09/11/2022, Additional history exists Eye Exam 05/11/2026 05/11/2024, 04/20, 05/11/2024, Additional history exists DTaP/Tdap/Td Vaccines (3 - Td or Tdap) 07/02/2027 07/01/2017, 10/15/2015 Colonoscopy Discontinued 05/01/2014 Colorectal Cancer Screening Discontinued Zoster Vaccines Completed 05/21/2020, 02/19, 01/26/2014 Pneumococcal Vaccine: 50+ Years Completed 01/21/2023, 10/15/2015, 01/02/2015 RSV Patients and Patients Aged 60 years or older Completed 12/30/2023 CT Colonography Discontinued FIT DNA/Cologuard Discontinued FIT [...] patient's age to complete this topic Meningococcal B Vaccine Aged Out No l onger eligible based on patient's age to complete [...] Component 7.7( 1:45 PM EDT) No Mary Ochoa, PharmD Record your blood sugar as directed Result Component No Mary Ochoa, PharmD Note: Use CGM, ensuring sensor is scanned at least once every 8 hours to capture 24H data. Check BG manually, as directed. Procedures Procedure Name Priority Date/Time Associated Diagnosis Comments POCT GLYCATED HEMOGLOBIN, TOTAL Routine 11/28/2024 1:45 PM EDT Type 2 diabetes mellitus with other specified complication, with long-term current use of insulin ([facility]) LIPID PANEL, STANDARD Routine 07/18/2024 10:51 AM EDT Type 2 diabetes mellitus with other specified complication, with long-term current use of insulin (CMS/HCC) Peripheral vascular disease (CMS/HCC) HM COLONOSCOPY Routine 05/01/2014 1:21 PM EST from Last 3 Months or Most Recently Relevant to Health Maintenance Results * (ABNORMAL) POCT HGB A1C (11/28/2024 1:45 PM EDT) Hemoglobin A1C 7.7(A) 4.0 - 5.7 % Blood 11/28/2024 1:45 PM EDT us Everettgabbie Woodson MD POINT OF CARE TEST ENTER/EDIT OR DERABLES Final Result * (ABNORMAL) Lipid Panel, Standard (07/18/2024 10:51 AM EDT) Triglycerides 188(H) <150 mg/dL [facility] Comment:Desirable Triglyceri de: less than 150 mg/dLBorderline High Triglyceride 150-199 mg/dLHigh Triglyceride: 200-499 mg/dLVery High Triglyceride: greater than or equal to 5OO mg/dL Cholesterol 145 <200 mg/dL [facility] Comment:Desirable Cholestero l: less than 200 mg/dLBorderline High Cholesterol: 200-239 mg/dLHigh Cholesterol: greater than 239 mg/dL LDL Cholesterol Calculated 59 <100 mg/dL [facility] Comment:Desirable LDL: less than 100 mg/dLNear Optimal/Above Optimal LDL: 110- 129 mg/dLBorderline High LDL: 130-159 mg/dLHigh LDL: 160-189 mg/dLVery High LDL: greater than or equal to 190 mg/dL HDL Cholesterol 49 >40 mg/dL [facility] Comment:Desirable HDL: great er than 40 mg/dL Note: This HDL assay may give artificially low results in patients with liver disease. Blood Venous blood specimen / Unknown 07/18/2024 10:51 AM EDT 07/18/2024 11:17 AM EDT Everett Name LAB BLOOD ORDERABLES Final Resul t [facility] [address] [place] [phone] * Hm Colonoscopy (05/01/2014 1:21 PM EST) Colonoscopy Normal Normal Narrative Coty Torres - 05/01/2014 1:21 PM EST Recommended 5 year follow up us Historical Provider HEALTH MAINTENANCE Final Result from Last 3 Months or Most Recently Relevant to Health Maintenance Insurance [id number] DUAL COMPLETE Care Teams Energy Efficiency Finance Manager Relationship Specialty Start Date End Date Name, MD Everett [address] [place] [address] PCP - General Family Medicine 05/28/15 Mary Ochoa, VirginiaD [address] [place] [address] Pharmacist Internal Medicine 12/09/21
--- OUTSIDE RECORDS SUMMARY | 2025-01-23 13:40 | XMS_ITS | Encounter Summary ---
Author Organization [employer] Address [address] [place] [address] Care Team Providers Care Medical Detailist Name Role Phone Name, Everett PERALTA Primary Care Provider Mary Ochoa PharmD Unavailable [phone] Reason for Visit * Reason Comments Med Refill Encounter Details Date Type Department Care Team (Late st Contact Info) Description 11/09/2022 Refill [facility] [address] [place] [phone] Mary Ochoa, PharmD [address] [place] [address] Type 2 diabetes mellitus with other specified complication, with long-term current use of insulin ([facility]) Social History Tobacco Use Types Packs/Day Years [...] Description 02/06/2025 3:30 PM EDT Office Visit [facility] [address] [place] [address] [phone] NameEverett MD [address] [place] [phone] 03/01/2025 1:00 PM EST Medication Management [facility] [address] [place] [phone] Mary Ochoa PharmD [address] [place] [address] documented as of this encounter Goals Goal Patient Goal Type Associated Problems Recent Progress Patient-Stated? Author Hemoglobin A1c < 8 Result Component 7.7( 5 1:45 PM EDT) No Mary Ochoa PharmD [...] with long-term current use of insulin (HCC) documented in this encounter Care Teams Medical Detailist Relationship Specialty Start Date End Date Name, MD Everett [address] [place] [address] PCP - General Family Medicine 05/28/15 Mary Ochoa PharmD [address] [place] [address] Pharmacist Internal Medicine 12/09/21 documented as of this encounter
--- OUTSIDE RECORDS SUMMARY | 2025-01-23 13:40 | XMS_ITS ---
Author Name Presley Abraham APRN Address [address] [place] [address] Phone [phone] [facility] Care Team Providers Care Aix System Administrator Name Role Phone Lexie Abraham Unavailable [phone] Reason for Referral Not Available Allergies, adverse [...] 2021-07-11 No Data Available OneTouch Delica Plus [id number] Miscellaneous TEST BLOOD SUGAR FOUR TIMES DAILY [...] List Problem Status Onset Date Resolved Date Synopsis Chronic obstructive lung disease Active 2022-05-19 N/A SuspectedFlovent HFA, Spiriva Major depressive disorder, recurrent, mild Active 2022-05-19 N/A SuspectedBupropi on Congestive heart failure Active 2022-05-19 N/A SuspectedAmlodipine, Clopidogrel, Metoprolol, Losartan Atherosclerosis of [place] arteries of extremities with intermittent claudication, bilateral legs Active 2022-05-19 N/A SuspectedClopido grel, Rosuvastatin, Losartan Type 2 diabetes mellitus with complicationType 2 diabetes mellitus with diabetic polyneuropathy Active 2022-05-19 N/A Rx: Metf ormin, Toujeo, Trulicity, Pregabalinlabs: A1c: 8.5 (12/08/2022) outside care - patient education the importance of diabetic diet, exercise, medication compliance. patient education on hypoglycemia and hyperglycemia signs and symptoms. monitor daily BGL. patient to assess feet daily for any cuts or wounds and to notify pcp or [facility] as soon as possible. Hyperlipidemia Active 2022-05-19 N/A Rx: Rosuva statinlosing weight, exercising regularly, eating a diet low in animal sources of fat (especially saturated fat, trans fat, and cholesterol), not smoking, and limiting alcohol intake. Peripheral vascular disease Active 2022-05-19 N/A Rx: Cilostazol p atient needs to watch for any warm, red, painful, and swollen symptoms. Elevating the lower extremities above the heart. avoid sitting for long periods. Social History Social History Social History Observation Description Effec tive Time Current Smoking Status Former smoker 7 Sex Female Functional Status Functional Category Effective Dates functional? 2023-04-27 Mental Status Status Date AOx 2022-05-19 Assessments Not Available Plan of Care Not Available
--- OUTSIDE RECORDS SUMMARY | 2025-01-23 13:40 | XMS_ITS | Encounter Summary ---
Author Organization [facility] Address [address] [place] [phone] Phone Care Team Providers Care Experience Design Director Name Role Phone Name, Everett PERALTA Primary Care Provider [phone] Encounter Details Date Type Department Care Team (Late st Contact Info) Description 08/19/2021 Procedure [facility] [address] [place] [address] Social History Tobacco Use Types Packs/Day Years Used Date Smoking Tobacco: Never Assessed Comments No Sex and Gender Information Value Date Recorded Sex Assigned at Not on file Legal Sex Female 1:27 PM EDT Gender Identity Not on file Sexual Orientation Not on file documented as of this encounter Plan of Treatment Not on file documented as of this encounter Visit Diagnoses Not on filedocumented in this encounter Care Teams Experience Design Director Relationship Specialty Start Date End Date Name, MD Everett [address] [place] [address] PCP - General Geriatric Psychiatry 08/13/21 documented as of this encounter Additional Source Comments The information contained in this document represents components of the legal health record. It is not the complete legal health record.[facility]
--- OUTSIDE RECORDS SUMMARY | 2025-01-23 13:40 | XMS_ITS | Encounter Summary ---
Author Organization [employer] Address [address] [place] [address] 7[address] [place] [address] Care Team Providers Care Undertaker Helper Name Role Phone Name, Everett PERALTA Primary Care Provider [phone] Mary Ochoa PharmD Unavailable Encounter Details Date Type Department Care Team (Late Contact Info) Description 09/29/2022 Abstract [facility] [address] [place] [address] [phone] Name, MD Everett [address] [place] [phone] Social History Tobacco Use Types Packs/Day Years [...] Description 02/06/2025 3:30 PM EDT Office Visit [facility] [address] [place] [address] [phone] Name, MD Everett [address] [place] [phone] 03/01/2025 1:00 PM EST Medication Management [facility] [address] [place] [address] Mary Ochoa PharmD [address] [place] [address] documented as of this encounter Goals Goal Patient Goal Type Associated Problems Recent Progress Patient-Stated? Author Hemoglobin A1c < 8 Result Component 7.7(11/28/2024 1:45 PM EDT) No Mary Ochoa PharmD documented as of this encounter Procedures Procedure Name Priority Date/Time Associated Diagnosis Comments COLONOSCOPY Routine 05/01/2014 1:21 PM EST documented in this encounter Results * Colonoscopy (05/01/2014 1:21 PM EST) Colonoscopy Normal Normal Narrative Coty Torres - 05/01/2014 1:21 PM EST Recommended 5 year follow up Historical Provider HEALTH MAINTENANCE Final Result documented in this encounter Visit Diagnoses Not on filedocumented in this encounter Care Teams Undertaker Helper Relationship Specialty Start Date End Date Name, [place] [address] PCP - General Family Medicine 05/28/15 Mary Ochoa PharmD [address] [place] [address] Pharmacist Internal Medicine 12/09/21 documented as of this encounter
--- OUTSIDE RECORDS SUMMARY | 2025-01-23 13:40 | XMS_ITS | Encounter Summary ---
Author Organization [employer] Address [address] [place] [address] 7 [place] [address] Care Team Providers Care Glass Inserter Name Role Phone Name, Everett PERALTA Primary Care Provider [phone] Mary Ochoa PharmD Unavailable [phone] Reason for Visit * Reason Onset Date Comments appt internal referral 10/30/2024 Encounter Details Date Type Department Care Team ([facility] st Contact Info) Description 10/30/2024 Telephone [facility] [address] [place], [place] [phone] Geoffrey Toth DDS [address] [place] [address] appt internal referral Social History Tobacco Use Types Packs/Day Years Used Date Smoking Tobacco: Never Passive Smoke Exposure: Never Alcohol Use Standard Drinks/Week Comments Never 0 (1 standard drink = 0.6 oz pur e alcohol) Depression Answer Date Recorded Patient Health Questionnaire-9 Score 0 09/07/2023 Patient Health Questionnaire-9 Score 0 09/07/2023 Last PHQ-9: Questionnaire Data Not on file 0 09/07/2023 Housing Stability Answer Date Recorded What is your housing situation today? I have sheldon sing 07/06/[address] you li [...] encounter Miscellaneous Notes * Telephone Encounter - Paris De La Rosa - 10/30/2024 2:59 PM EDT Patient has an internal referral from 12/2023. She is calling in today because of difficulty with her partials Please reach out to patient DR documented in this encounter Plan of Treatment Upcoming Encounters Date Type Department Care Team (Late st Contact Info) Description 02/06/2025 3:30 PM EDT Office Visit [facility] [address] [place] [phone] Name, MD Everett [address] [place] [address] 03/01/2025 1:00 PM EST Medication Management [facility] [address] [place] [phone] aMry Ochoa PharmD [address] [place] [phone] documented as of this encounter Goals Goal [...] Assessment Noted Time PHQ-9 Depression Total Score: 0 09/07/19 24 2:10 PM EDT documented as of this encounter Care Teams Glass Inserter Relationship Specialty Start Date End Date Name, MD Everett [address] [place] [address] PCP - General Family Medicine 05/28/15 Mary Ochoa PharmD [address] [place] [address] Pharmacist Internal Medicine 12/09/21 documented as of this encounter
--- OUTSIDE RECORDS SUMMARY | 2025-01-23 13:40 | XMS_ITS | Encounter Summary ---
Author Organization [facility] Address [address] [facility] [address] [facility] [address] [place] [phone] Phone Care Team Providers Care Division Controller Name Role Phone Name, Everett PERALTA Primary Care Provider [phone] Encounter Details Date Type Department Care Team (Late st Contact Info) Description 10/07/2022 Procedure Pass [facility] [address] [place] [address] Social History Tobacco Use Types Packs/Day Years Used Date Smoking Tobacco: Former Cigarettes Q uit: 2018 Smokeless Tobacco: Never Alcohol Use Standard Drinks/Week Comments Never 0 (1 standard drink = 0.6 oz pur e alcohol) Education Answer Date Recorded Are you interested in more education? Not on lis e 08/15/2022 Are you concerned about learning? Not on file 08/15/2022 No 08/15/2022 No 08/15/2022 Digital Access Answer Date Recorded No 09/11/2022 No 09/11/2022 Reliable internet access at home? Not on file 09/11/2022 Device with a working camera? Not on file Intimate Partner Violence Answer Date R ecorded Are you denied basic needs s uch as food, clothing, or medical care? No 10/07/2022 In the past 12 months have y ou been in a relationship with a person who hurts, threatens, or tries to control you? No 10/07/2022 Are you denied basic needs s uch as food, clothing, or medical care? No 10/07/2022 In the past 12 months have y ou been in a relationship with a person who hurts, threatens, or tries to control you? No 10/07/2022 Comments No Sex and Gender Information Value Date Recorded Sex Assigned at Not on file Legal Sex Female 1:27 PM EDT Gender Identity Not on file Sexual Orientation Not on file documented as of this encounter Plan of Treatment Not on file documented as of this encounter Visit Diagnoses Not on filedocumented in this encounter Care Teams Division Controller Relationship Specialty Start Date End Date Name, MD Everett [address] [place] [address] PCP - General Geriatric Psychiatry 08/13/21 documented as of this encounter Additional Source Comments The information contained in this document represents components of the legal health record. It is not the complete legal health record.[facility]
--- OUTSIDE RECORDS SUMMARY | 2025-01-23 13:40 | XMS_ITS | Encounter Summary ---
Author Organization [employer] Address [address] [place] [address] [place] [address] Care Team Providers Care Color Developer Name Role Phone Name, Everett PERALTA Primary Care Provider [phone] Mary Ochoa PharmD Unavailable Encounter Details Date Type Department Care Team (Late st Contact Info) Description 04/02/2022 Orders Only [facility] [address] [place] [address] [phone] Preethi Muse LPN Social History Tobacco Use [...] Description 02/06/2025 3:30 PM EDT Office Visit [facility] [address] [place] [phone] Name, MD Everett [address] [place] [phone] 03/01/2025 1:00 PM EST Medication Management [facility] [address] [place] [phone] Mary Ochoa, PharmD [address] [place] [phone] documented as of this encounter Visit Diagnoses Not on filedocumented in this encounter Care Teams Color Developer Relationship Specialty Start Date End Date Name, MD Everett [address] [place] [address] PCP - General Family Medicine 05/28/15 Mary Ochoa PharmD [address] [place] [address] Pharmacist Internal Medicine 12/09/21 documented as of this encounter
--- OUTSIDE RECORDS SUMMARY | 2025-01-23 13:40 | XMS_ITS | Encounter Summary ---
Author Organization [employer] Address [address] [place] [address] [address] [place] [address] Care Team Providers Care Spray Gun Repairer Name Role Phone Name, Everett PERALTA Primary Care Provider [phone] Mary Ochoa PharmD Unavailable [phone] Reason for Visit * Reason Comments Med Refill PT REQUESTING MED RE FILL FOR FREESTYLE ANTONIO 2 PLUS READER Encounter Details Date Type Department Care Team (Late st Contact Info) Description 09/05/2024 Refill [facility] [address] [place], [place] [phone] Name, MD Everett [address] [place], [place] [phone] Type 2 diabetes mellitus with other specified complication, with long-term current use of insulin ([facility]) Social History Tobacco Use Types Packs/Day Years [...] encounter Miscellaneous Notes * Telephone Encounter - Elsie Forte - 09/05/2024 11:48 AM EDT PT REQUESTING MED REFILL FOR iExplore ANTONIO 2 PLUS READER documented in this encounter Plan of Treatment Upcoming Encounters Date Type Department Care Team (Late st Contact Info) Description 02/06/2025 3:30 PM EDT Office Visit [facility] [address] [place] [phone] Name, MD Everett [address] [place] [phone] 03/01/2025 1:00 PM EST Medication Management [facility] [address] [place] [address] [phone] Mary Ochoa, PharmD [address] [place] [address] documented as of this encounter Goals Goal [...] of insulin (HCC) documented in this encounter Additional Health Concerns Assessment Noted Time PHQ-9 Depression Total Score: 0 09/07/19 24 2:10 PM EDT documented as of this encounter Care Teams Spray Gun Repairer Relationship Specialty Start Date End Date Name, MD Everett [address] [place] [address] PCP - General Family Medicine 05/28/15 Mary Ochoa PharmD [address] [place] [address] Pharmacist Internal Medicine 12/09/21 documented as of this encounter
--- OUTSIDE RECORDS SUMMARY | 2025-01-23 13:41 | XMS_ITS | Clinical Summary ---
Author Organization [facility] Address [address] [place] [phone] Phone Care Team Providers Care Light Bulb Tester Name Role Phone Name, Everett PERALTA Primary Care Provider [phone] Allergies Active Allergy Reactions Criticality Noted Date Comments Rubén Inhibitors Cough Medications losartan (COZAAR) 50 MG tablet Take 50 mg by mouth nightly at bedtime. 07/18/19 Active metFORMIN (GLUCOPHAGE) 500 MG tablet TAKE 1 TABLET BY MOUTH TWICE DAILY IN THE MORNING AND IN THE EVENING WITH MEALS 05/22/19 Active metoprolol succinate (TOPROL-XL) 200 MG 24 hr tablet Take 200 mg by mouth nightly at bedtime. at bedtime. 06/20/19 Active amLODIPine (NORVASC) 10 MG tablet Take 10 mg by mouth nightly at bedtime. at bedtime. 07/18/19 Active aspirin 81 MG EC tablet Take 81 mg by mouth nightly at bedtime. at bedtime. 07/18/19 Active ONETOUCH ULTRA TEST Strp strips TEST BLOOD SUGAR 4 TIMES A DAY 07/22/19 Active buPROPion (WELLBUTRIN SR) 150 MG SR 12 hr tablet TAKE 1 TABLET BY MOUTH TWICE DAILY IN THE MORNING AND IN THE EVENING 07/18/19 Active VITAMIN D3 50 mcg (2,000 unit) capsule TAKE 1 CAPSULE BY MOUTH TWICE DAILY IN THE MORNING AND IN THE EVENING 06/20/19 Active cilostazol (PLETAL) 50 MG tablet TAKE 1 TABLET BY MOUTH TWICE DAILY IN THE MORNING AND IN THE EVENING (30 MINUTES BEFORE OR 2 HOURS AFTER FOOD) 07/18/19 Active TRULICITY 3 mg/0.5 mL subcutaneous injection INJECT ONE PEN (= 3 MG) SUBCUTANEOUSLY ONCE A WEEK DIRECTED 07/18/19 Active FLOVENT HFA 44 mcg/actuation inhaler INHALE 2 PUFFS BY MOUTH TWICE DAILY RINSE MOUTH AFTER USING. 07/18/19 Active ONETOUCH DELICA PLUS LANCET 33 gauge Misc TEST BLOOD SUGAR 4 TIMES A DAY 07/22/19 Active pregabalin (LYRICA) 100 MG capsule Take 100 mg by mouth 2 (two) times a day. Active rosuvastatin (CRESTOR) 20 MG tablet Take 20 mg by mouth daily. Active acetaminophen (TYLENOL) 325 mg tablet Take 650 mg by mouth as needed. Active albuterol 2.5 mg /3 mL (0.083 %) nebulizer solution as needed. 05/27/19 23 Active cyanocobalamin (VITAMIN B-12) 1,000 mcg/mL injection Inject 1,000 mcg into the muscle every 30 (thirty) days. 03/05/20 Active insulin glargine 100 unit/mL (3 mL) InPn injection pen Inject under the skin daily. Active omeprazole (PRILOSEC) 20 MG tablet Take 20 mg by mouth daily. Active tiotropium (SPIRIVA HANDIHALER) 18 mcg inhalation capsule daily. 02/26/20 Active clopidogrel (PLAVIX) 75 mg tabletIndication s:PVD (peripheral vascular disease) TAKE 1 TABLET BY MOUTH EVERY MORNING 90 tablet 3 06/16/19 25 Active Active Problems Problem Noted Date Diagnosed Date PVD (peripheral vascular disease) 10/26/2022 PVD (peripheral vascular disease) with claudicat ion 07/27/2022 Assessment & Plan (10/26/2022 1:54 PM EDT): As mentioned she is status post right SFA intervention doing well she has an ultrasound coming up I will see her in 6 months or sooner if necessary Claudication in peripheral vascular disease 07/18 Assessment & Plan (07/27/2022 12:25 PM EDT): As mentioned we are going to intervene on the right superficial femoral artery she has a new lesion above the stent that I placed in the past. Benign essential hypertension 07/27/2022 Assessment & Plan (10/26/2022 1:54 PM EDT): Well-controlled at this time Assessment & Plan (07/27/2022 12:25 PM EDT): Goal should be less than 130 systolic Diabetes 07/27/2022 Assessment & Plan (10/26/2022 1:54 PM EDT): A1c should be less than 7 and LDL less than 70 mg/dL by the guidelines. Assessment & Plan (07/27/2022 12:25 PM EDT): A1c should be less than 7 and LDL less than 70 mg/dL Pure hypercholesterolemia 07/27/2022 Social History Tobacco Use Types Packs/Day Years Used Date Smoking Tobacco: Former Cigarettes Q uit: 2018 Smokeless Tobacco: Never Tobacco Cessation:Counseling Given: Not Answered Alcohol [...] on file Sexual Orientation Not on file Last Filed Vital Signs Vital Sign Reading Time Taken Comments Blood Pressure 142/80 10/26/2022 1:45 PM EDT Pulse 64 10/26/2022 1:45 PM EDT Temperature 36.5 C (97.7 F) 10/07/2022 11:17 AM EDT Respiratory Rate 19 10/07/2022 2:00 PM EDT Oxygen Saturation 97% 10/26/2022 1:45 PM EDT Inhaled Oxygen Concentration - - Weight 84.4 kg (186 lb) 10/26/2022 1:45 PM EDT Height 157.5 cm (5' 2 ) 10/26/2022 1:45 PM EDT Body Mass Index 34.02 10/26/2022 1:45 PM EDT Plan of Treatment Health Maintenance Due Date Last Done Comments CREATININE LEVEL 1947 POTASSIUM LEVEL 1947 DEPRESSION SCREENING 1959 SMOKING Hx and SMOKELESS TOBACCO SCREENING 09/09/1960 HEPATITIS C SCREENING 09/09/1965 OSTEOPOROSIS SCREENING INITIAL (ONE-TIME) 09/09/2012 DIABETIC EYE EXAM 07/27/2022 RSV VACCINE (1 - 1-dose 75+ series) 09/09/2022 HEMOGLOBIN A1C 03/14/2023 09/11/2022 BLOOD PRESSURE 04/28/2023 10/26/2022 INFLUENZA VACCINE (#1) 2024 , 02/03/2021, 03/18/2020, Additional history exists COVID-19 VACCINE ( season) 2024 09/25/2022, 05/08/2021, 05/08/2021, Additional history exists Adult Td,Tdap Booster 07/02/2027 07/01/2017, 016 PNEUMOCOCCAL VACCINES (50+ years) Completed 10/15/2015, 01/02/2015 ZOSTER VACCINES Completed 05/21/2020, 02/19, 01/26/2014 HEPATITIS A VACCINES Aged Out No long er eligible based on patient's age to complete this topic HIB VACCINES Aged Out No longer eligi ble based on patient's age to complete this topic MENINGOCOCCAL VACCINES (ACWY) Aged Out No longer eligible based on patient's age to complete this topic MENINGOCOCCAL VACCINES (B) Aged Out N o longer eligible based on patient's age to complete this topic Medical Devices Implanted Type Area Faculty Neuropsychologist Device Identifier Shelf Expiration Date Model / Serial / Lot Stent Absolute Pro 6mm 100mm 135cm .035in Otw Vascular Nickel Titanium Self-Expanding External Iliac Artery Tri Axial Radiopaque Marker Sterile Disp - [id number] Implanted:Qty: 1 on 08/19/2021 by Timur Daniels DO at [facility] Stent Right: Arterial [employer] [id number] 07/17/2024 [id number] / / [id number] Description:right SFA Stent Lifestent Solo 6fr 7mm 200mm 135cm .035in Vascular Self Expanding Nitinol - [id number] Implanted:Qty: 1 on 10/07/2022 by Timur Daniels DO at [facility] Stent Right: Arterial [employer] [id number] 12/09/2023 [id number] / / [id number] Description:proximal SFA Insurance [facility] MEDICARE REPLACEMENT [facility] MED[facility] REPLACEMENT [facility] MEDICARE REPLACEMENT [facility] MEDICARE REPLACEMENT [facility] MEDICARE REPLACEMENT [facility] MEDICARE REPLACEMENT [facility] MEDICARE REPLACEMENT [facility] MEDICARE REPLACEMENT [facility] MEDICARE REPLACEMENT Advance Directives For more information, please contact: [phone] (9AM - 5PM [facility], Wednesday-Wednesday) * Full Code (Latest Code Status on File) Date Activated Date Inactivated Comments 10/07/2022 6:56 AM Question Answer Comments Code Status Confirmed With: Patient Code Status Communicated To: Other (specify belo w) Code Discussion Comments: Per MD Daniels * Full Code Date Activated Date Inactivated Comments 08/19/2021 7:11 AM 10/07/2022 6:56 AM Question Answer Comments Code Status Confirmed With: Other (specify below ) Code Discussion Comments: transcribed from the o rder Care Teams Light Bulb Tester Relationship Specialty Start Date End Date Name, MD Everett [address] [place] [address] PCP - General Geriatric Psychiatry 08/13/21 Additional Source Comments The information contained in this document represents components of the legal health record. It is not the complete legal health record.[facility]
[2025-01-23 13:53] LABS: Hematocrit 34.1 % (37.0-47.0); Hemoglobin 10.5 g/dl (12.0-16.0); Imm Gran Abs Auto 0.03 X10*3/uL (0.00-0.03); Imm Gran Pct Auto 0.4 % (0.0-0.4); Lymphocytes Absolute Auto 2.6 X10*3/uL (1.2-4.9); Mean Corpuscular HGB Conc 30.8 g/dl (31.0-35.0); Mean Corpuscular Hemoglobin 26.4 pg (27.0-33.0); Mean Corpuscular Volume 85.9 fL (80.0-98.0); NRBC Abs Auto 0.000 X10*3/uL (0.0-0.012); NRBC Pct Auto 0.0 /100WBC (0.0-0.2); Platelet Count 219 X10*3/uL (160-400); Red Blood Count 3.97 X10*6/uL (4.20-5.50); White Blood Count 7.9 X10*3/uL (4.8-10.8)
[2025-01-23 14:20] LABS: Anion Gap 12 (12-20); Blood Urea Nitrogen 24 mg/dL (9-16); Calcium 9.9 mg/dL (8.4-10.2); Carbon Dioxide 25 mmol/L (22-29); Chloride 111 mmol/L (96-108); Estimated Glomerular Filt Rate 51; Ferritin 24 ng/mL (10-250); Iron 61 mcg/dL (30-160); Percent Iron Saturation 22 % (15-50); Potassium 4.8 mmol/L (3.3-5.1); Sodium 143 mmol/L (135-145); Total Iron Binding Capacity 282 mcg/dL (228-428); Unsaturated Iron Binding 221 ug/dL
== END 2025-01-23 11:02 | disposition home or self-care (01) ==
LOC: HO.HHCL 11:01
PROVIDERS: PCP Internal Medicine Geriatric Medicine; Visit Provider Internal Medicine Geriatric Medicine
DX: E11.21 Type 2 diabetes mellitus with diabetic nephropathy (principal); D64.9 Anemia, unspecified; Z79.4 Long term (current) use of insulin
CPT/HCPCS: 36415; 80048; 82728; 83540; 85025